=== PATIENT | female | born 1960 | race Caucasian/White ===

== ENCOUNTER → 2017-07-07 09:23 | Outpatient (CLI) | payer BC, SELFPAY ==
--- NOTE | 2017-07-07 09:26 | MM_ITS ---
MM Dig mamm BI DX w/CAD CAD Screening COMPARISON: Digital mammograms 06/14/2015 and 07/03/2016 INDICATION: There is a history of breast cancer in patient's sister diagnosed before menopause. There is been previous biopsy left breast for benign disease. TECHNIQUE: Standard CC and MLO images were obtained. R2 CAD reviewed. FINDINGS: Moderate diffuse heterogenic fibroglandular densities are seen in both breasts and the findings are bilateral and symmetrical. There is a biopsy clip just deep to the nipple left breast. There are few benign-appearing calcifications in each breast. There is no suspicious lesion and there are no suspicious microcalcifications. IMPRESSION: Stable exam no suspicious lesion seen recommend yearly follow-up BI-RADS Category: 2 Benign Finding(s) RECOMMENDED FOLLOW-UP: 1YR - 1 YEAR FOLLOW-UP (A letter has been sent to the patient regarding results of the study.)
== END ==
PROVIDERS: Family Provider Internal Medicine; PCP Obstetrics & Gynecology; Visit Provider Obstetrics & Gynecology
DX: Z12.31 Encounter for screening mammogram for malignant neoplasm of breast (principal)
CPT/HCPCS: 77066

== ENCOUNTER → 2017-10-16 08:13 | Outpatient (POV) | payer BC, SELFPAY | PROVIDERS: Visit Provider Dentist | DX: Z00.00 Encounter for general adult medical examination without abnormal findings (principal) ==

== ENCOUNTER → 2018-02-19 08:05 | Outpatient (POV) | payer BC, SELFPAY | PROVIDERS: Family Provider Internal Medicine; Visit Provider Dentist | DX: Z00.00 Encounter for general adult medical examination without abnormal findings (principal) ==

== ENCOUNTER → 2018-03-05 08:24 | Outpatient (POV) | payer BC, SELFPAY | PROVIDERS: Visit Provider Dentist | DX: Z00.00 Encounter for general adult medical examination without abnormal findings (principal) ==

== ENCOUNTER → 2018-05-21 08:40 | Outpatient (POV) | payer BC, SELFPAY | PROVIDERS: Visit Provider Dentist | DX: Z00.00 Encounter for general adult medical examination without abnormal findings (principal) ==

== ENCOUNTER → 2018-07-10 08:14 | Outpatient (CLI) | payer BC, SELFPAY ==
--- NOTE | 2018-07-10 08:17 | MM_ITS ---
MM Dig screening mamm BI w/CAD ORDERING PHYSICIAN : Ney Silver MD PATIENT AGE: 58 years GENDER: Female COMPARISON: June 2015, & 2016 & 2017. The bilateral mammogram studies INDICATION: ITS.Routine screening mammogram. This Patient takes Premarin.. Previous benign stereotactic and excisional biopsies left breast. Family history. Sister with breast cancer age 30 premenopausal. TECHNIQUE: Standard CC and MLO images were obtained. R2 CAD reviewed. FINDINGS: Moderately dense moderate heterogeneous breast ... No suspicious calcifications. There is slight nodular character the breast bilaterally again noted.. LEFT BREAST:. Note Small focal dense area noted at the lateral aspect of the central left breast -which is most likely due to summation shadows. This small dense area measuring less than 5 mm seen towards central breast on cc view only. But most likely reside superiorly on MLO view.-But Suspect this is likely summation shadows. See no discrete corresponding density on today's MLO view.. Suggest ultrasound & spot views to further evaluate. Otherwise. Mild asymmetry overall stable to previous mammograms... Small metallic marker at 12:00 anterior left breast from previous percutaneous biopsy again noted RIGHT BREAST:. Right breast slightly nodular character again observed. Vague 9 mm area labeled 'A', is more evident than on recent studies. However suspect was vaguely seen on 2016. Most likely summation shadow or benign fluctuating density..... Doubt of significance but would suggest spot cc, and MLO views right breast as well as ultrasound when patient returns. This could also evaluate the slightly nodular character throughout the breast with areas of fluctuating density which could reflect some underlying cysts.. ... IMPRESSION: ...... Left Breast.... Small 5 mm focus of increased density on cc view, seen at the Central left breast, labeled X.. Most likely a summation shadow. But would benefit from spot views & ultrasound to further evaluate. Right Breast:... Subtle area nodularity labeled A at central right breast on cc view.- Most likely summation shadow as well. Suggest additional imaging here as well However would suggest spot views bilaterally as well as bilateral breast ultrasound to further evaluate BI-RADS Category: 0 Need Additional Imaging Evaluation RECOMMENDED FOLLOW-UP: IMM - IMMEDIATE FOLLOW-UP RECOMMENDED (A letter has been sent to the patient regarding results of the study.)
== END ==
PROVIDERS: PCP Internal Medicine; Visit Provider Obstetrics & Gynecology
DX: Z12.31 Encounter for screening mammogram for malignant neoplasm of breast (principal)
CPT/HCPCS: 77067

== ENCOUNTER → 2018-07-15 09:51 | Outpatient (CLI) | payer BC, SELFPAY ==
--- NOTE | 2018-07-15 09:52 | XR_ITS ---
XR DEXA axial skeleton HISTORY: ITS.REASON: screening ORDERING PHYSICIAN: Ney Silver MD PATIENT AGE: 58 years COMPARISON: 07/03/2016 FINDINGS: The BMD measured at the Left femoral neck is 1.02 g/cm squared with a T score of -0.1. This is considered Normal according to the World Health Organization criteria. Fracture risk is Low. The L1 L4 density has a T score of 1.1. Compared to the previous study the mean lumbar spine density has increased by 1.9% and the mean hip density has increased by 1.9% IMPRESSION: Normal bone density. Low fracture risk. Suggest follow-up exam July 2020
== END ==
PROVIDERS: PCP Internal Medicine; Visit Provider Obstetrics & Gynecology
DX: Z78.0 Asymptomatic menopausal state (principal)
CPT/HCPCS: 77080

== ENCOUNTER → 2018-07-27 14:19 | Outpatient (CLI) | payer BC, SELFPAY ==
--- NOTE | 2018-07-27 14:21 | MM_ITS ---
MM Dig mamm BI DX w/CAD, US breast LT complete, US breast RT complete Ordering Physician: Ney Silver MD Patient Age: 58 years: Female HISTORY: ITS.REASON: ABNORMAL MAMM a follow-up nodularity bilaterally. This patient takes Premarin . Previous stereotactic biopsy and benign excisional biopsy left breast . Sister with breast cancer in her 30s. TECHNIQUE: Diagnostic mammogram: Spot CC view left and right breast Bilateral breast ultrasound: complete ultrasound survey of entire right and left breast including axillary survey. COMPARISON : Multiple prior mammogram digital mammogram from Jul 10, 2018,... & Jun 2017 , 2016, 2015May 20092007 film screen studies DIAGNOSTIC MAMMOGRAM SPOT VIEWS Moderate density breast. Diffuse moderate fibroglandular elements throughout both breast. Slightly heterogeneous character. RIGHT MAMMOGRAM : minimal areas of density at the right breast dissipate on today's spot views and are compatible with multiple old studies.. No new areas of concern. Ultrasound reveals scattered cysts right breast LEFT MAMMOGRAM:. . The small focal area of density noted on recent mammogram persist on the cc view it is again observed on today's CC spot view.. I suspect it is a small cyst which is become apparent on ultrasound at 6 o'clock or 2:00 position each of these measuring up to roughly 4 MM size. On MLO view area Nodularity towards superior breast appears similar to multiple old studies. .-as seen on prior studies from 2007 2008 . Clip from previous stereotactic biopsy seen at the anterior central breast towards 12:00 ========= ULTRASOUND LEFT BREAST: These images do reveal small roughly 4 mm cyst at 2 o'clock position central breast.. And small nearly 4 mm cyst at the 6 o'clock position. Which may correspond with this nodular density on mammography.. . There are also some mild ductal prominence the retroareolar region. Axillary survey demonstrates what appear to be benign nodes largest measuring just over 2 cm length ULTRASOUND RIGHT BREAST: Small unimpressive areas most likely debris-filled cyst. Can be followed: 2:00 central breast behind nipple. Small debris filled cyst of 3.6 mm 3:00 behind nipple small 2.5 mm cyst 10:00 central breast behind nipple 4.25 mm probable debris-filled cyst versus intramammary lymph node. 10:00. Behind nipple 4.4 mm likely debris-filled cyst. Mild ductal prominence retroareolar region. Right axilla: scattered axillary nodes. Largest 2.1 cm. IMPRESSION 1. Bilateral breast Ultrasound-reveals scattered small debris-filled in breast bilaterally 2. Left mammogram. The Small focal focal area of density noted on recent screening mammogram again seen today. This Persist But not as focally dense and fairly smooth margin appearance.-. Suspect this is likely a small cyst as seen on subsequent ultrasound.. However Would suggest a follow-up left mammogram 6 months to confirm stability, for this as well as other subtle features. 3. Right mammogram. Nodularity less evident on today's spot views. & attributable to the scattered cyst seen on today's right breast ultrasound. Follow up one year on right BI-RADS Category: 3 Probably Benign Finding Short Term Follow-up RECOMMENDED FOLLOW-UP: 6M 6 MONTH FOLLOW-UP A 6 month left mammogram & ultrasound left breast. (A letter has been sent to the patient regarding results of the study.)
--- NOTE | 2018-07-27 14:26 | US_ITS ---
US abdomen limited HISTORY:Palpable nodule in the right abdominal region ORDERING PHYSICIAN: Ney Silver MD PATIENT AGE: 58 years Comparison: None FINDINGS: There is a 17 x 15 x 9 mm area of fairly homogeneous isoechogenicity in the right upper quadrant corresponding to the palpable abnormality and may represent a lipoma. This could be confirmed with CT clinically warranted. This does not represent a simple cyst. IMPRESSION: Possible subcutaneous lipoma right upper quadrant
== END ==
PROVIDERS: PCP Internal Medicine; Visit Provider Obstetrics & Gynecology
DX: R92.8 Other abnormal and inconclusive findings on diagnostic imaging of breast (principal); R10.11 Right upper quadrant pain
CPT/HCPCS: 76641; 76705; 77066

== ENCOUNTER → 2018-11-27 11:37 | Outpatient (CLI) | payer BC, SELFPAY ==
[2018-11-27 14:19] LABS: Glucose,Random 72 mg/dL (70-110)
== END ==
PROVIDERS: Visit Provider Obstetrics & Gynecology
DX: N76.0 Acute vaginitis (principal)
CPT/HCPCS: 82947

== ENCOUNTER → 2018-12-29 09:10 | Outpatient (CLI) | payer BC, SELFPAY ==
--- NOTE | 2018-12-29 09:23 | MM_ITS ---
MM Dig mamm DX unilat LT CAD, US breast LT complete Ordering Physician: Ney Silver MD Patient Age: 58 years Female COMPARISON: Bilateral screening mammogram from June 20172016. 2018 INDICATION: New palpable area 6:00 left breast Follow-up asymmetric density left breast noted on 2018 screening mammogram ======== DIAGNOSTIC LEFT MAMMOGRAM with Spot views: CC & MLO spot views upper outer quadrant left breast performed to address palpable area at 6 o'clock position as well as areas noted on July2018 screening mammogram. There is a palpable area towards 6:00-marked by triangular skin marker. Just deep to this area note minimal slightly ovoid density noted at inferior breast with slightly ill-defined margins-majority this density is been seen on prior films MLO view. However this ovoid component in density slightly more evident today and it appears, slightly more focal today.-On today's spot MLO view, note small ovoid area measuring up to 6 mm.. This corresponds with the hypoechoic area seen on subsequent ultrasound. Other previously noted areas of nodularity, previously noted the July screening mammogram, are less evident today... There is a metallic clip at the superior right breast 12:00 reflecting previous percutaneous biopsy-unchanged. ====== ULTRASOUND LEFT BREAST including axilla survey Ultrasound survey the entire breast performed and specifically includes axillary survey. 6:00: The palpable area at 6:00 corresponds with a small up to 5.9 mm hypoechoic area. Mild back wall enhancement and likely debris-filled cyst but there is some appearance of wall thickening of on one or 2 the submitted images.. On although more likely debris-filled cyst,; since area has become palpable and demonstrates some indeterminate features, ultrasound-guided aspiration would be warranted. However since strongly favors a benign cystic area most likely an follow-up 6 months with ultrasound would be a very reasonable alternative.. This patient has history of small cysts . 2:00. Small 4.6 mm cyst.-. No significant change since previous study A few small scattered benign axillary lymph nodes image. Unremarkable. IMPRESSION: ......... 1. The palpable area at 6:00,-corresponds with minimal density on mammography & hypoechoic area ultrasound. Suspect most likely debris-filled cyst with mild wall thickening, & with mild indeterminate features; it measuring up to 6 mm size. . Because it has become palpable in the interval, & demonstrates slight indeterminate features, & not seen on previous usd study,-would suggest ultrasound-guided aspiration. (However if desire a reasonable alternative would be a 6 month follow-up, with ultrasound follow-up at that time.. As favor this is a benign likely fibrocystic feature. . The patient has had small debris filled cyst in past. Also This area may be difficult to visualize & isolated for aspiration given its small size & location just deep to the dermis.) BI-RADS Category: 4 , minimal Suspicious Abnormality-Biopsy Considered . (Most likely debris-filled cyst) RECOMMENDED FOLLOW-UP: BIO - BIOPSY RECOMMENDED *Ultrasound-Guided Cyst Aspiration sampling of this palpable, thick wall probable cyst recommended A letter has been sent to the patient regarding results of the study.)
== END ==
PROVIDERS: PCP Internal Medicine; Visit Provider Obstetrics & Gynecology
DX: N63.20 Unspecified lump in the left breast, unspecified quadrant (principal)
CPT/HCPCS: 76641; 77065

== ENCOUNTER → 2019-01-12 12:38 | Outpatient (CLI) | payer BC, SELFPAY ==
--- NOTE | 2019-01-12 12:38 | US_ITS ---
US FNA Breast HISTORY: Palpable amounted left breast with abnormal breast ultrasound. ORDERING PHYSICIAN: Ney Silver MD PATIENT AGE: 58 years COMPARISON: None TECHNIQUE: Following obtaining informed consent, using aseptic technique and local anesthesia with buffered lidocaine, fine-needle aspiration was performed of the nodule of interest using sonographic guidance. 3 passes were made into the nodule with a 21 gauge needle. Specimen was given to cytology. The central aspect of the nodule did appear to decrease in size. There is some heterogeneous echogenicity around this central area which could also be part of the nodule. The patient tolerated the procedure well without evidence of immediate complications and left the ultrasound suite in stable condition. CYTOLOGY:Atypical IMPRESSION: Uneventful ultrasound guided fine needle aspiration of the left breast nodule at 6:00. The central portion of the nodule did appear to partially aspirate. However, the cytology was atypical. Further investigation is therefore recommended. If the nodule is truly palpable excisional biopsy with palpation could be performed. We could also attempted to perform an ultrasound-guided mammotome biopsy. The nodule is fairly superficial however. Alternatively, a hook wire could be placed within the central aspect of the lesion for excisional biopsy. Consider surgical consult. If hook wire placement is desired then, it would be recommended that the patient come in before the procedure to make sure we can still see the nodule by ultrasound.
== END ==
PROVIDERS: PCP Internal Medicine; Visit Provider Obstetrics & Gynecology
DX: N63.20 Unspecified lump in the left breast, unspecified quadrant (principal)
CPT/HCPCS: 10005; 76942

== ENCOUNTER → 2019-04-12 12:50 | Outpatient (CLI) | payer BC, SELFPAY ==
--- NOTE | 2019-04-12 12:52 | MM_ITS ---
PROCEDURE: MM DIG MAMM DX UNILAT LT CAD CLINICAL INDICATION: 3 month f/u Follow-up atypical pathology for recent breast biopsy COMPARISON: DIG MAMM-DX UNI-LT from 12/29/2018 FNABRE US FNA Breast from 01/12/2019 US BREAST LT COMPLETE from 04/13/2019 TECHNIQUE: Standard CC and MLO images were obtained. R2 CAD reviewed. FINDINGS: Recent fine needle aspiration of the left breast shows atypical cytology. Therefore, excisional biopsy was suggested. Patient returns today to see if the area persists before biopsy planned. Left mammogram: Average fibroglandular tissue. Biopsy clip is present in the upper aspect of the left breast. No malignant appearing mass or malignant-appearing microcalcification is evident. Left breast ultrasound: There remains an area of heterogeneous echogenicity at the 6 o'clock region of the left breast at the area of previous biopsy with heterogeneous echogenicity measuring 1.8 by 0.8 cm with a central area of decreased echogenicity measuring 5 mm. This is not significantly changed from the previous FNA. Therefore, excisional biopsy is suggested as this was the area of atypical cytology. IMPRESSION: BI-RAD Category: 4 Suspicious Abnormality - Biopsy Considered FOLLOW-UP: Recommend excisional biopsy with hookwire placement with ultrasound. (A letter has been sent to the patient regarding results of the study.) Dictated by: Salty Zepeda MD 04/19/2019 09:38 Electronically signed by Salty Zepeda MD in [place] 04/19/2019 09:38
== END ==
PROVIDERS: PCP Internal Medicine; Visit Provider Obstetrics & Gynecology
DX: R92.8 Other abnormal and inconclusive findings on diagnostic imaging of breast (principal)
CPT/HCPCS: 77065

== ENCOUNTER → 2019-04-13 10:57 | Outpatient (CLI) | payer BC, SELFPAY | PROVIDERS: PCP Internal Medicine; Visit Provider Obstetrics & Gynecology | DX: R92.8 Other abnormal and inconclusive findings on diagnostic imaging of breast (principal) | CPT/HCPCS: 76641 ==

== ENCOUNTER → 2019-04-27 10:13 | Outpatient (CLI) | payer BC, SELFPAY ==
--- NOTE | 2019-04-27 10:31 | ECG_ITS ---
APPROVED REPORT Exam: Resting ECG HR:55 bpm ECG Measurements Heart Rate 55 AXES MA 140 P 26 QRSd 90 QRS 2 QT 406 T 11 QTc 388 <Conclusion> Sinus bradycardia Otherwise normal ECG Electronically signed by : Baltazar Posey, 04/27/2019 21:29:07
[2019-04-27 11:06] LABS: Basophils % 0.5 % (0.1-2.0); Eosinophils # 0.2 K/mm3 (0.0-0.4); Eosinophils % 3.5 % (0.1-12.0); Hematocrit 42.1 % (37.0-47.0); Hemoglobin 14.1 g/dL (12.2-16.2); Lymphocytes # 1.5 K/mm3 (0.7-4.5); Mean Corpuscular HGB Conc 33.6 g/dL (31.8-35.4); Mean Corpuscular Hemoglobin 30.7 pg (27.0-31.2); Mean Corpuscular Volume 91.6 fl (81-99); Mean Platelet Volume 9.2 fl (7.4-10.4); Monocytes # 0.4 K/mm3 (0.1-1.0); Monocytes % 6.9 % (1.7-9.3); Neutrophils # 3.9 K/mm3 (1.8-7.8); Platelet Count 336 K/mm3 (142-424); Red Cell Distribution Width 13.6 % (11.5-17.5); White Blood Count 6.1 K/mm3 (4.8-10.8)
[2019-04-27 12:13] LABS: Anion Gap 8.8 mEq/L (5-15); Blood Urea Nitrogen 12 mg/dL (7-18); Carbon Dioxide 30 mmol/L (21.0-32.0); Chloride 105 mmol/L (98-107); Estimated Glomerular Filt Rate 126 ml/min (>60); GFR (African American) 153 ML/MIN (>60); Glucose 92 mg/dL (74-106); Potassium 3.8 mmoL/L (3.5-5.1); Sodium 140 mmol/L (136-145)
== END ==
PROVIDERS: Visit Provider Surgery
DX: Z01.818 Encounter for other preprocedural examination (principal); N63.20 Unspecified lump in the left breast, unspecified quadrant
CPT/HCPCS: 36415; 80048; 85025; 93005

== ENCOUNTER → 2019-07-29 13:24 | Outpatient (CLI) | payer BC, SELFPAY ==
--- NOTE | 2019-07-29 13:25 | MM_ITS ---
PROCEDURE: MM DIG MAMM BI DX W/CAD CLINICAL INDICATION: abnormal mamm COMPARISON: [facility] DIGITAL MAMM-SCREEN BILATERAL from 05/22/2011 [facility] DIGITAL MAMM-SCREEN BILATERAL from 05/22/2012 [facility] DIG MAMM-SCREEN NELLA from 05/20/2013 [facility] DIG MAMM-SCREEN NELLA from 06/01/2014 [facility] DIG MAMM-SCREEN NELLA from 06/14/2015 [facility] DIG MAMM-SCREEN NELLA W/CAD from 07/03/2016 [facility] MM Dig mamm BI DX w/CAD from 07/07/2017 [facility] MM Dig screening mamm BI w/CAD from 07/10/2018 [facility] MM Dig mamm BI DX w/CAD from 07/27/2018 MM DIG MAMM DX UNILAT LT CAD from 04/12/2019 MM SURGICAL SPECIMEN LT from 05/14/2019 MM DIG MAMM DX UNILAT LT CAD from 05/14/2019 TECHNIQUE: Standard CC and MLO images and 3D Tomosynthesis was obtained. R2 CAD reviewed. FINDINGS: The breasts are of average density. Multiple postsurgical clips from biopsy with wire is seen in the inferior lateral aspect of the left breast. There is some asymmetrical density most consistent with scarring in the surgical bed. There are no new findings suspicious for malignancy. Benign appearing calcifications are seen bilaterally. IMPRESSION: BI-RAD Category: 3 probably benign) FOLLOW-UP: 6M 6Month Follow-up (A letter has been sent to the patient regarding results of the study.) Dictated by: Lopez Ryder 07/29/2019 16:28 Electronically signed by Lopez Ryder in [place] 07/29/2019 16:28
--- NOTE | 2019-07-29 13:25 | US_ITS ---
PROCEDURE: US BREAST LT COMPLETE CLINICAL INDICATION: lt breast nodule COMPARISON: US BREAST NEEDLE LOC LT from 05/14/2019 FINDINGS: Images were obtained over the left breast with emphasis on the area of prior surgery. A small fluid collection approximately 3 x 24 millimeters irregular and poorly circumscribed is seen in the biopsy bed. Differential considerations would include postsurgical seroma or lymphocele. Abscess would also have to be considered in the appropriate clinical setting. There is no discrete solid mass or other sonographic abnormality. No correlate for the nodular density in the lateral left breast seen mammographically is noted. Fatty containing lymph nodes are seen in the left axilla. IMPRESSION: BI-RADS category 2 benign. Small amount of fluid is seen in the breast at the 6 o'clock position near the nipple in the postsurgical region. Seroma, lymphocele, or in the appropriate clinical setting, abscess would have to be considered. Dictated by: Lopez Ryder 07/31/2019 10:33 Electronically signed by Lopez Ryder in [place] 07/31/2019 10:33
== END ==
PROVIDERS: PCP Internal Medicine; Visit Provider Surgery
DX: N63.20 Unspecified lump in the left breast, unspecified quadrant (principal)
CPT/HCPCS: 76641; 77062; 77066; G0279

== ENCOUNTER → 2020-01-31 13:17 | Outpatient (CLI) | payer BC, SELFPAY ==
--- NOTE | 2020-01-31 | US_ITS ---
PROCEDURE: US BREAST LT COMPLETE CLINICAL INDICATION: Follow-up fluid collection seen at the lumpectomy site on previous ultrasound exam COMPARISON: US US BREAST LT COMPLETE from 07/29/2019 FINDINGS: The somewhat irregular elongated fluid collections seen 6 to 7 o'clock position on the previous ultrasound exam has resolved was a postoperative hematoma or seroma. There is no suspicious mass or fluid collection at this time. Only minimal postoperative scarring is noted at the 6 and 7 o'clock positions. IMPRESSION: Interval improvement with resolution of the suspected fluid collection seen on the previous ultrasound exam and only minor post lumpectomy scarring is noted. No additional ultrasound follow-up is indicated at this time. Dictated by: Dr. Xavi Corral MD 02/08/2020 10:51 Dr. Xavi Corral MD in [place] 02/08/2020 10:51
--- NOTE | 2020-01-31 13:18 | MM_ITS ---
PROCEDURE: MM DIG MAMM DX UNILAT LT CAD Digital Breast Tomosynthesis Included CLINICAL INDICATION: 6 mo fu COMPARISON: MG MM SURGICAL SPECIMEN LT from 05/14/2019 MG MM DIG MAMM DX UNILAT LT CAD from 05/14/2019 MG MM DIG MAMM BI DX W/CAD from 07/29/2019 TECHNIQUE: Standard CC and MLO images and 3D Tomosynthesis was obtained. R2 CAD reviewed. FINDINGS: The opacity at the site of the surgical clips seen on the previous study 07/29/2019 has resolved in this likely was post surgical edema and or scarring which has shown interval contraction. Moderate diffuse fibroglandular densities are seen in the central portion of the breast. The multiple biopsy clips are again noted inferior medial breast and in addition to a 2nd biopsy clip just deep to the nipple. There are no suspicious microcalcifications. IMPRESSION: Interval resolution of what was likely post biopsy edema and or scarring, recommend patient return to normal yearly screening BI-RAD Category: 2 Benign Finding(s) FOLLOW-UP: 6M 6Month Follow-up to return to normal yearly screening schedule (A letter has been sent to the patient regarding results of the study.) Dictated by: Dr. Xavi Corral MD 02/02/2020 14:16 Dr. Xavi Corral MD in [place] 02/02/2020 14:16
== END ==
PROVIDERS: PCP Internal Medicine; Visit Provider Surgery
DX: N63.20 Unspecified lump in the left breast, unspecified quadrant (principal)
CPT/HCPCS: 76641; 77061; 77065; G0279

== ENCOUNTER → 2020-07-31 10:52 | Outpatient (CLI) | payer BC, SELFPAY ==
--- NOTE | 2020-07-31 10:52 | MM_ITS ---
PROCEDURE: MM DIG SCREENING MAMM BI W/CAD Digital Breast Tomosynthesis Included CLINICAL INDICATION: breast nodules There is a history of breast cancer in the patient's sister diagnosed in her 30s. There has been a previous biopsy left breast for benign disease.. The patient recently started Premarin cream. COMPARISON: MG MM SURGICAL SPECIMEN LT from 05/14/2019 MG MM DIG MAMM BI DX W/CAD from 07/29/2019 MG MM DIG MAMM DX UNILAT LT CAD from 01/31/2020 TECHNIQUE: Standard CC and MLO images and 3D Tomosynthesis was obtained. R2 CAD reviewed. FINDINGS: Moderate diffuse fibroglandular densities are seen throughout both breasts. Multiple surgical clips are seen lower inner quadrant left breast at the previous biopsy site. There is a mole marker outer quadrant left breast. There couple of benign-appearing microcalcifications in each breast. There is no suspicious lesion in either breast and no suspicious microcalcifications. IMPRESSION: Stable moderate diffuse breast density with no suspicious lesions seen BI-RAD Category: 2 Benign Finding(s) FOLLOW-UP: 1YR 1 Year Follow-up (A letter has been sent to the patient regarding results of the study.) Dictated by: Dr. Xavi Corral MD 08/01/2020 16:46 Dr. Xavi Corral MD in [place] 08/01/2020 16:46
== END ==
PROVIDERS: PCP Internal Medicine; Visit Provider Surgery
DX: Z12.31 Encounter for screening mammogram for malignant neoplasm of breast (principal); N63.20 Unspecified lump in the left breast, unspecified quadrant; Z80.3 Family history of malignant neoplasm of breast
CPT/HCPCS: 77063; 77067

== ENCOUNTER → 2020-08-08 15:12 | Outpatient (POV) | payer BC, SELFPAY | PROVIDERS: Visit Provider Dermatology | DX: Z00.00 Encounter for general adult medical examination without abnormal findings (principal) ==

== ENCOUNTER → 2020-11-01 09:39 | Outpatient (CLI) | payer BC, SELFPAY ==
--- NOTE | 2020-11-01 09:46 | XR_ITS ---
PROCEDURE: XR KNEE LT 3V CLINICAL INDICATION: LT KNEE PAIN AND SWELLING COMPARISON: No exams were available for comparison FINDINGS: No fracture or dislocation. No lytic or blastic change. There is normal mineralization. There are mild osteoarthritic changes of the medial compartment and patellofemoral joint. There is increased soft tissue density in the suprapatellar region suggesting small knee joint effusion. Other findings:None. 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
== END ==
PROVIDERS: PCP Internal Medicine; Visit Provider Internal Medicine
DX: M25.562 Pain in left knee (principal); M25.462 Effusion, left knee
CPT/HCPCS: 73562

== ENCOUNTER → 2021-01-24 18:32 | Outpatient (CLI) | payer BC, SELFPAY ==
[2021-01-24 19:15] LABS: Basophils # 0.1 K/mm3 (0-0.2); Basophils % 0.8 % (0.1-2.0); Eosinophils # 0.4 K/mm3 (0.0-0.4); Eosinophils % 3.8 % (0.1-12.0); Hematocrit 40.3 % (37.0-47.0); Hemoglobin 13.9 g/dL (12.2-16.2); Lymphocytes % 20.4 % (10-50); Mean Corpuscular HGB Conc 34.5 g/dL (31.8-35.4); Mean Corpuscular Hemoglobin 29.8 pg (27.0-31.2); Mean Corpuscular Volume 86.4 fl (81-99); Mean Platelet Volume 9.2 fl (7.4-10.4); Monocytes # 0.7 K/mm3 (0.1-1.0); Monocytes % 7.6 % (1.7-9.3); Neutrophils # 6.5 K/mm3 (1.8-7.8); Neutrophils % 67.4 % (37.0-80.0); Platelet Count 353 K/mm3 (142-424); Red Blood Count 4.66 M/mm3 (4.20-5.40); Red Cell Distribution Width 13.9 % (11.5-17.5); White Blood Count 9.6 K/mm3 (4.8-10.8)
[2021-01-24 19:41] LABS: Chloride 105 mmol/L (98-107); Sodium 142 mmol/L (136-145)
[2021-01-24 19:42] LABS: Potassium 3.8 mmoL/L (3.5-5.1)
[2021-01-24 19:44] LABS: Alanine Aminotransferase 23 U/L (12-78); Albumin Level 4.1 g/dl (3.5-5.0); Albumin/Globulin Ratio 1.6 (1.1-1.8); Alkaline Phosphatase 112 U/L (38-126); Amylase 45 U/L (30-110); Anion Gap 12.8 mEq/L (5-15); Aspartate Amino Transferase 33 U/L (14-36); Bilirubin,Total 0.3 mg/dl (0.2-1.3); Blood Urea Nitrogen 9 mg/dl (7-17); Calcium 8.9 mg/dl (8.4-10.2); Carbon Dioxide 28 mmol/L (22.0-30.0); Estimated Glomerular Filt Rate 102 ml/min (>60); GFR (African American) 123 ML/MIN (>60); Globulin 2.6 g/dL (1.3-3.2); Glucose 83 mg/dl (74-100); Total Protein,Serum 6.7 g/dl (6.3-8.2)
== END ==
PROVIDERS: Visit Provider Internal Medicine
DX: R10.12 Left upper quadrant pain (principal); R10.11 Right upper quadrant pain; R11.0 Nausea
CPT/HCPCS: 80053; 82150; 85025

== ENCOUNTER → 2021-02-02 10:29 | Outpatient (CLI) | payer BC, SELFPAY ==
[2021-02-02 10:31] LABS: Adenovirus F 40/41, stool Not Detected (NotDetected); Astrovirus Not Detected (NotDetected); Campylobacter Not Detected (NotDetected); Clostridium Difficile A/B, PCR Not Detected (NotDetected); Cryptosporidium Not Detected (NotDetected); Cyclospora Cayetanesis Not Detected (NotDetected); Entamoeba histolytica Not Detected (NotDetected); Enteroaggregative E coli Not Detected (NotDetected); Enteropathogenic E coli Not Detected (NotDetected); Enterotoxigenic E coli Not Detected (NotDetected); Giardia lamblia Not Detected (NotDetected); Norovirus Not Detected (NotDetected); Plesimonas Shigalloides, PCR Not Detected (NotDetected); Rotavirus A Not Detected (NotDetected); Salmonella, PCR Not Detected (NotDetected); Sapovirus Not Detected (NotDetected); Shiga-like toxin E coli Not Detected (NotDetected); Shigella Enterovasive E coli Not Detected (NotDetected); Vibrio Cholerae Not Detected (NotDetected); Vibrio, PCR Not Detected (NotDetected); Yersinia Entercolitica, PCR Not Detected (NotDetected)
== END ==
PROVIDERS: Visit Provider Nurse Practitioner Family
DX: R10.12 Left upper quadrant pain (principal); R19.7 Diarrhea, unspecified
CPT/HCPCS: 87507

== ENCOUNTER → 2021-07-05 08:44 | Outpatient (CLI) | payer SELFPAY ==
[2021-07-06 13:37] LABS: Covid-19 Nasal PCR Sendout Lex NOT DETECTED
== END ==
PROVIDERS: Visit Provider Nurse Practitioner
DX: Z20.822 Contact with and (suspected) exposure to COVID-19 (principal)
CPT/HCPCS: C9803; U0004; U0005

== ENCOUNTER → 2021-08-02 09:53 | Outpatient (CLI) | payer SELFPAY ==
--- NOTE | 2021-08-02 09:57 | MM_ITS ---
PROCEDURE INFORMATION: Exam: MG Bilateral Screening 3D Mammography Exam date and time: 08/02/2021 9:57 AM Age: 61 years old Clinical indication: Screening mammogram TECHNIQUE: Imaging protocol: Bilateral Screening tomosynthesis and 2D mammography including computer-aided detection (CAD) when performed. COMPARISON: 1. MG MM DIG SCREENING MAMM BI W/CAD 07/31/2020 10:54 AM 2. MG MM DIG MAMM DX UNILAT LT CAD 01/31/2020 1:42 PM 3. MG MM DIG MAMM BI DX W/CAD 07/29/2019 1:44 PM 4. MG MM SURGICAL SPECIMEN LT 05/14/2019 11:17 AM FINDINGS: MAMMOGRAPHY: Breast composition: The breast tissue is heterogeneously dense, which may obscure small masses. Mass: None. Architectural distortion: No new or suspicious architectural distortion. Calcifications: No new or suspicious calcifications are present Asymmetric density: No new or suspicious asymmetric density is present Skin thickening: None. Axillary adenopathy: None. Other findings: Stable postoperative findings within the left breast. IMPRESSION: No mammographic evidence of malignancy. Recommend annual screening mammography unless otherwise clinically indicated. ASSESSMENT: BI-RADS category 2: Benign
== END ==
PROVIDERS: PCP Internal Medicine; Visit Provider Internal Medicine
DX: Z12.31 Encounter for screening mammogram for malignant neoplasm of breast (principal)
CPT/HCPCS: 77063; 77067

== ENCOUNTER → 2022-04-10 12:34 | Outpatient (CLI) | payer OTHER, SELFPAY ==
[2022-04-10 14:06] LABS: Blood Urea Nitrogen 10 mg/dl (7-17); Estimated Glomerular Filt Rate 125 ml/min (>60); GFR (African American) 151 ML/MIN (>60)
== END ==
PROVIDERS: PCP Internal Medicine; Visit Provider Student in an Organized Health Care Education/Training Program
DX: Z01.812 Encounter for preprocedural laboratory examination (principal)
CPT/HCPCS: 36415; 82565; 84520

== ENCOUNTER → 2022-04-11 08:00 | Outpatient (CLI) | payer OTHER, SELFPAY ==
--- NOTE | 2022-04-11 08:00 | MR_ITS ---
FINAL REPORT CLINICAL HISTORY: unsteady gait. IMBALANCE. SYMPTOMS X YEARS. 19ML PROHANCE GIVEN. FINDINGS: Multiplanar MR imaging of the brain was performed without and with contrast. There is mild age-appropriate atrophy. Scattered foci of increased T2 signal are seen in the cerebral white matter that favor mild chronic ischemic/gliotic changes over other etiologies such as demyelination and vasculitis. There is no evidence of intracranial hemorrhage or mass. No abnormal ventricular dilatation is identified. There is no evidence of shift of the midline structures. No abnormal extra-axial fluid collection is seen. No area of abnormal restricted diffusion is identified. The posterior fossa and brainstem have an unremarkable appearance. No abnormal contrast enhancement is seen. Normal major vessel vascular flow voids are seen. IMPRESSION: Atrophy. Scattered small foci of increased T2 signal in the cerebral white matter favoring mild chronic ischemic/gliotic meter changes records clerk other etiologies such as demyelination and vasculitis. No acute intracranial abnormality. Reviewed, Interpreted and Dictated by Gurjit Moya III, MD Transcribed by Caio Feliciano Authenticated and . [facility]
== END ==
PROVIDERS: PCP Student in an Organized Health Care Education/Training Program; Visit Provider Student in an Organized Health Care Education/Training Program
DX: R26.81 Unsteadiness on feet (principal)
CPT/HCPCS: 70553; A9576

== ENCOUNTER → 2022-06-11 14:38 | Outpatient (CLI) | payer BC, SELFPAY ==
--- NOTE | 2022-06-11 15:15 | XR_ITS ---
FINAL REPORT CLINICAL HISTORY: positive rhomberg, occas neck pain FINDINGS: SPINE CERVICAL COMPLETE/FLEXION & EXT Three views demonstrate no acute fracture. There is moderate diffuse degenerative disc disease and spondylosis. There is no evidence of instability or malalignment with flexion and extension maneuvers. IMPRESSION: Degenerative disc disease. Reviewed, Interpreted and Dictated by Merlin Purvis MD Transcribed by Kate Morrell Authenticated and [facility]
[2022-06-11 17:35] LABS: Basophils # 0.1 K/mm3 (0-0.2); Basophils % 0.9 % (0.1-2.0); Eosinophils # 0.4 K/mm3 (0.0-0.4); Eosinophils % 5.5 % (0.1-12.0); Hematocrit 42.9 % (37.0-47.0); Hemoglobin 13.9 g/dL (12.2-16.2); Lymphocytes # 1.9 K/mm3 (0.7-4.5); Lymphocytes % 24.2 % (10-50); Mean Corpuscular HGB Conc 32.5 g/dL (31.8-35.4); Mean Corpuscular Hemoglobin 28.8 pg (27.0-31.2); Mean Corpuscular Volume 88.8 fl (81-99); Mean Platelet Volume 8.9 fl (7.4-10.4); Monocytes # 0.7 K/mm3 (0.1-1.0); Monocytes % 8.7 % (1.7-9.3); Neutrophils # 4.9 K/mm3 (1.8-7.8); Neutrophils % 60.7 % (37.0-80.0); Platelet Count 406 K/mm3 (142-424); Red Blood Count 4.83 M/mm3 (4.20-5.40); Red Cell Distribution Width 13.6 % (11.5-17.5)
[2022-06-11 19:12] LABS: Alanine Aminotransferase 26 U/L (12-78); Albumin Level 4.1 g/dl (3.5-5.0); Albumin/Globulin Ratio 1.5 (1.1-1.8); Alkaline Phosphatase 95 U/L (38-126); Anion Gap 11.8 mEq/L (5-15); Aspartate Amino Transferase 36 U/L (14-36); Bilirubin,Total 0.5 mg/dl (0.2-1.3); Blood Urea Nitrogen 11 mg/dl (7-17); Calcium 8.9 mg/dl (8.4-10.2); Carbon Dioxide 28 mmol/L (22.0-30.0); Chloride 103 mmol/L (98-107); Estimated Glomerular Filt Rate 101 ml/min (>60); GFR (African American) 123 ML/MIN (>60); Globulin 2.7 g/dL (1.3-3.2); Glucose 77 mg/dl (74-100); Potassium 3.8 mmoL/L (3.5-5.1); Sodium 139 mmol/L (136-145); Total Protein,Serum 6.8 g/dl (6.3-8.2)
[2022-06-11 19:37] LABS: Thyroid Stimulating Hormone 2.26 uIU/mL (0.465-4.68)
[2022-06-11 20:13] LABS: Vitamin B12 735 pg/mL (239-931)
[2022-06-11 20:17] LABS: Folate > 20.00 ng/mL
== END ==
PROVIDERS: PCP Internal Medicine; Visit Provider Nurse Practitioner Family
DX: M54.2 Cervicalgia (principal); R26.89 Other abnormalities of gait and mobility; R29.818 Other symptoms and signs involving the nervous system; G47.00 Insomnia, unspecified; Z86.69 Personal history of other diseases of the nervous system and sense organs
CPT/HCPCS: 36415; 72052; 80053; 82607; 82746; 84443; 85025

== ENCOUNTER → 2022-06-20 08:41 | Outpatient (CLI) | payer OTHER, SELFPAY ==
--- NOTE | 2022-06-20 08:41 | MR_ITS ---
FINAL REPORT CLINICAL HISTORY: NECK PAIN ,ABN XRAY. DIZZINESS. Intermittent hand numbness. FINDINGS: Multiplanar MR imaging of the cervical spine was performed without contrast. On the sagittal T2-weighted images, disc degeneration is seen throughout. There is no evidence of fracture. There is mild retrolisthesis of C3 on 4, C4 on 5, and C5 on 6. The cervical spinal cord has an unremarkable appearance without evidence of mass, edema or syrinx. No significant canal stenosis is identified. The cervicomedullary junction is normal. C2-3: There is no significant canal stenosis or neural foraminal narrowing. C3-4: Disc osteophyte complex is present with severe right and moderate left neural foraminal narrowing. C4-5: Disc osteophyte complex is present with severe right and moderate left neural foraminal narrowing. C5-6: Disc osteophyte complex is present with severe right and moderate left neural foraminal narrowing. C6-7: Disc osteophyte complex is present with moderate bilateral neural foraminal narrowing. C7-T1: There is no significant canal stenosis or neural foraminal narrowing. IMPRESSION: Multilevel degenerative disc disease and spondylosis. Reviewed, Interpreted and Dictated by Gurjit Moya III, MD Transcribed by Kate Morrell Authenticated and [facility]
--- NOTE | 2022-06-20 11:52 | XR_ITS ---
FINAL REPORT CLINICAL HISTORY: Cough FINDINGS: 2 views of the chest were obtained . The heart is normal in size. The mediastinum is within normal limits. The lungs are clear. There is no pneumothorax. Osseous structures are unremarkable. IMPRESSION: No acute cardiopulmonary process. Reviewed, Interpreted and Dictated by Gurjit Moya III, MD Transcribed by Trisha Muñoz Authenticated and [facility]
== END ==
PROVIDERS: PCP Internal Medicine; Visit Provider Nurse Practitioner Family
DX: R05.9 Cough, unspecified (principal); M54.2 Cervicalgia; R26.89 Other abnormalities of gait and mobility; R93.7 Abnormal findings on diagnostic imaging of other parts of musculoskeletal system
CPT/HCPCS: 71046; 72141; 76376

== ENCOUNTER → 2022-06-24 09:07 | Outpatient (CLI) | payer OTHER, SELFPAY | PROVIDERS: PCP Family Medicine; Visit Provider Nurse Practitioner Family | DX: G47.33 Obstructive sleep apnea (adult) (pediatric) (principal); G47.00 Insomnia, unspecified; R06.83 Snoring; R26.89 Other abnormalities of gait and mobility; E66.9 Obesity, unspecified; Z68.39 Body mass index [BMI] 39.0-39.9, adult | CPT/HCPCS: G0399 ==

== ENCOUNTER → 2022-08-06 10:49 | Outpatient (CLI) | payer OTHER, SELFPAY ==
--- NOTE | 2022-08-06 10:49 | MM_ITS ---
PROCEDURE INFORMATION: Exam: MG Bilateral Screening 3D Mammography Exam date and time: 08/06/2022 10:44 AM Age: 62 years old Clinical indication: Screening examination TECHNIQUE: Imaging protocol: Bilateral Screening tomosynthesis and 2D mammography including computer-aided detection (CAD) when performed. COMPARISON: 1. MG MM DIG SCREENING MAMM BI W/CAD 08/02/2021 9:53 AM 2. MG MM DIG SCREENING MAMM BI W/CAD 07/31/2020 10:54 AM FINDINGS: MAMMOGRAPHY: Breast composition: The breasts are heterogeneously dense, which may obscure small masses. Mass: None. Architectural distortion: None. Calcifications: Linear calcifications in the middle third of the left central breast Asymmetric density: None. Skin thickening: None. Axillary adenopathy: None. IMPRESSION: Patient to be recalled for spot magnification views of the left breast in the CC and MLO projections for further evaluation of left breast calcifications. ASSESSMENT: BI-RADS Category 0: Incomplete- Need Additional Imaging Evaluation and/or Prior Mammograms for Comparison
== END ==
PROVIDERS: PCP Family Medicine; Visit Provider Family Medicine
DX: Z12.31 Encounter for screening mammogram for malignant neoplasm of breast (principal)
CPT/HCPCS: 77063; 77067

== ENCOUNTER → 2022-08-16 12:45 | Outpatient (CLI) | payer OTHER, SELFPAY ==
--- NOTE | 2022-08-16 12:45 | MM_ITS ---
PROCEDURE INFORMATION: Exam: MG Left Diagnostic Breast Tomosynthesis Exam date and time: 08/16/2022 12:57 PM Age: 62 years old Clinical indication: Recall on the basis of screening mammogram 08/06/2022 for further evaluation of linear calcifications in the middle 3rd of the left breast. History of left breast surgery. TECHNIQUE: Imaging protocol: Left Diagnostic tomosynthesis and 2D mammography including computer-aided detection (CAD) when performed. Unilateral or bilateral exam. COMPARISON: 1. MG MM DIG SCREENING MAMM BI W/CAD 08/06/2022 10:44 AM 2. MG MM DIG SCREENING MAMM BI W/CAD 08/02/2021 9:53 AM 3. MG MM DIG SCREENING MAMM BI W/CAD 07/31/2020 10:54 AM 4. MG MM DIG MAMM DX UNILAT LT CAD 01/31/2020 1:42 PM FINDINGS: MAMMOGRAPHY: Magnification views show suspicious linear branching calcifications in a segmental distribution, over at least 5 cm, in the left central breast middle 3rd. Also, in the craniocaudad projection fainter punctate groupings of calcifications in the lateral breast, anterior 3rd, lateral to the biopsy clip, not demonstrated in the MLO projection. IMPRESSION: See comment Stereotactic biopsy recommended for segmental branching calcifications in the central left breast. There are additional calcifications in the lateral anterior 3rd of the CC projection, not demonstrated in the MLO projection - suggest adding a full field lateral and magnification views in the upper left breast to delineate extent of calcifications. ASSESSMENT: BI-RADS Category 4: Suspicious
== END ==
PROVIDERS: PCP Family Medicine; Visit Provider Family Medicine
DX: R92.8 Other abnormal and inconclusive findings on diagnostic imaging of breast (principal)
CPT/HCPCS: 77061; 77065; G0279

== ENCOUNTER → 2022-08-27 14:37 | Outpatient (CLI) | payer OTHER, SELFPAY ==
--- NOTE | 2022-08-27 14:37 | MM_ITS ---
PROCEDURE INFORMATION: Exam: MG Left Diagnostic Breast Tomosynthesis Exam date and time: 08/27/2022 2:33 PM Age: 62 years old Clinical indication: Diagnostic mammogram from 08/16/2022 describes suspicious branching calcifications spanning 5 cm in the left central breast middle 1/3. No was made that lateral anterior 1/3 calcifications were present on CC but not visualized on ML magnification views, and therefore full lateral and MLO were requested TECHNIQUE: Imaging protocol: Left Diagnostic tomosynthesis and 2D mammography including computer-aided detection (CAD) when performed. Unilateral or bilateral exam. COMPARISON: 1. MG MM DIG MAMM DX UNILAT LT CAD 08/16/2022 12:57 PM 2. MG MM DIG SCREENING MAMM BI W/CAD 08/06/2022 10:44 AM 3. MG MM DIG SCREENING MAMM BI W/CAD 08/02/2021 9:53 AM 4. MG MM DIG SCREENING MAMM BI W/CAD 07/31/2020 10:54 AM FINDINGS: MAMMOGRAPHY: In addition to the suspicious linear and branching calcifications spanning 5 cm occupying the central left breast, there is a 1.5 cm cluster of very faint pleomorphic calcifications in the upper outer anterior left breast located about 5 cm superior and slightly lateral to the dominant central calcifications. No associated architectural distortion or suspicious mass. Morphologically, these are suspicious IMPRESSION: In addition to the central 5 cm grouping of branching and linear calcifications initially deemed suspicious there is a 1.5 cm cluster of faint pleomorphic calcifications in the upper outer anterior left breast about 5 cm superior and lateral to the dominant cluster. Biopsy of both of these clusters should be considered to exclude the possibility of ASSESSMENT: BI-RADS category 4: Suspicious
== END ==
PROVIDERS: PCP Family Medicine; Visit Provider Family Medicine
DX: R92.1 Mammographic calcification found on diagnostic imaging of breast (principal); R92.8 Other abnormal and inconclusive findings on diagnostic imaging of breast; Z80.3 Family history of malignant neoplasm of breast
CPT/HCPCS: 77061; 77065; G0279

== ENCOUNTER → 2022-09-23 08:55 | Outpatient (CLI) | payer OTHER, SELFPAY ==
--- NOTE | 2022-09-23 08:55 | MM_ITS ---
FINAL REPORT CLINICAL HISTORY: lt breast calcs, 2nd site FINDINGS: STEREOTACTIC GUIDED LEFT BREAST BIOPSY, CLIP PLACEMENT, SPECIMEN RADIOGRAPH AND POST BIOPSY MAMMOGRAM Indication: Suspicious calcifications located in the inferior left breast at 6:00. This was the 2nd of 2 left breast biopsies. Findings: The stereotactic guided breast biopsy procedure was explained in detail to the patient including potential risk and benefits. The patient voiced an understanding of the procedure, was given an opportunity to ask questions, after which informed consent was obtained. The patient was positioned upon the stereotactic unit in the prone position. The breast was prepped in the usual sterile fashion. Subcutaneous soft tissues were anesthetized with lidocaine with epinephrine. Subsequently, with intermittent stereotactic guidance, the stereotactic biopsy needle was advanced into the breast in the region of the mammographic abnormality corresponding to recent diagnostic mammogram. An inferior to superior approach was utilized. Multiple vacuum assisted core samples were obtained. Sampling was thought to be adequate and the biopsy clip marker was deployed in the region of biopsy. Additional imaging as detailed below was performed. Specimen radiograph: Calcifications confirmed adequate Post procedure routine CC and MLO view mammogram: Post biopsy changes. Biopsy marker clip noted to be in the appropriate location. Patient tolerated the procedure well. No immediatecomplications. IMPRESSION: 1. Technically successful stereotactic guided biopsy of left upper outer quadrant calcifications 2. Biopsy marker clip deployed 3. Post biopsy mammogram obtained as above Authenticated and [facility]
--- NOTE | 2022-09-23 09:39 | MM_ITS ---
FINAL REPORT CLINICAL HISTORY: 1st site , suspicious left breast calcifications FINDINGS: STEREOTACTIC GUIDED LEFT BREAST BIOPSY, CLIP PLACEMENT, SPECIMEN RADIOGRAPH AND POST BIOPSY MAMMOGRAM Indication: Suspicious calcifications located in the left upper outer quadrant. This was the 1st of 2 left breast biopsies. Findings: The stereotactic guided breast biopsy procedure was explained in detail to the patient including potential risk and benefits. The patient voiced an understanding of the procedure, was given an opportunity to ask questions, after which informed consent was obtained. The patient was positioned upon the stereotactic unit in the prone position. The breast was prepped in the usual sterile fashion. Subcutaneous soft tissues were anesthetized with lidocaine with epinephrine. Subsequently, with intermittent stereotactic guidance, the stereotactic biopsy needle was advanced into the breast in the region of the mammographic abnormality corresponding to recent diagnostic mammogram. A superior to inferior approach was utilized. Multiple vacuum assisted core samples were obtained. Sampling was thought to be adequate and the biopsy clip marker was deployed in the region of biopsy. Additional imaging as detailed below was performed. Specimen radiograph: Calcifications confirmed adequate Post procedure routine CC and MLO view mammogram: Post biopsy changes. Biopsy marker clip noted to be in the appropriate location. Patient tolerated the procedure well. No immediatecomplications. IMPRESSION: 1. Technically successful stereotactic guided biopsy of left upper outer quadrant calcifications 2. Biopsy marker clip deployed 3. Post biopsy mammogram obtained as above Authenticated and [facility]
--- NOTE | 2022-09-23 09:39 | MM_ITS ---
FINAL REPORT CLINICAL HISTORY: Stereotactic biopsy of 2 separate suspicious groups of left breast calcifications FINDINGS: MAMMOGRAM LEFT TECHNIQUE: Standard digital 2-D views COMPARISON: 08-27-22, 08-22-22 and 08-21-22 DENSITY: There are scattered areas of fibroglandular density FINDINGS: Post biopsy marker clips are noted to be in satisfactory position. Postbiopsy changes are noted. Calcifications of interest are fewer in number reflecting adequate sampling. IMPRESSION: Biopsy marker clip in good position RECOMMENDATION: Pending histopathology evaluation Authenticated and [facility]
--- NOTE | 2022-09-23 11:28 | MM_ITS ---
FINAL REPORT CLINICAL HISTORY: lt breast calcs FINDINGS: 2 separate surgical specimen radiographs were obtained of 2 separately biopsied groups of calcifications in the left breast. One group was seen in the left upper outer quadrant. A 2nd group was noted in the inferior left breast at 6:00. Specimen radiographs of both biopsy samples show the calcifications of interest contained within core specimen. Heterogeneous calcifications were localized within at least 2 of the samples from the left upper outer quadrant biopsy. Linear calcifications were seen in at least 3 of the samples of the grouped calcifications at 6:00 left breast IMPRESSION: Specimen radiographs of 2 separate biopsies of the left breast confirm adequate sampling Authenticated and [facility]
== END ==
PROVIDERS: PCP Family Medicine; Visit Provider Surgery
DX: R92.1 Mammographic calcification found on diagnostic imaging of breast (principal)
CPT/HCPCS: 19081; 19082; 76098; 77065

== ENCOUNTER → 2022-10-22 10:41 | Outpatient (CLI) | payer OTHER, SELFPAY ==
--- NOTE | 2022-10-22 10:50 | ECG_ITS ---
APPROVED REPORT Exam: Resting ECG HR:57 bpm ECG Measurements Heart Rate 57 AXES OH 133 P 31 QRSd 96 QRS 3 QT 405 T 11 QTc 398 Conclusion SINUS BRADYCARDIA WITH SINUS ARRHYTHMIA LOW QRS VOLTAGE IN PRECORDIAL LEADS [QRS DEFLECTION < 1.0 mV IN CHEST LEADS] PATTERN CONSISTENT WITH PULMONARY DISEASE ABNORMAL ECG UNCONFIRMED REPORT Electronically signed by : Baltazar Posey MD 10/22/2022 20:08:55
[2022-10-22 11:54] LABS: Basophils # 0.1 K/mm3 (0-0.2); Basophils % 0.8 % (0.1-2.0); Eosinophils # 0.4 K/mm3 (0.0-0.4); Eosinophils % 5.1 % (0.1-12.0); Hematocrit 40.5 % (37.0-47.0); Hemoglobin 13.2 g/dL (12.2-16.2); Lymphocytes # 1.4 K/mm3 (0.7-4.5); Lymphocytes % 19.7 % (10-50); Mean Corpuscular HGB Conc 32.6 g/dL (31.8-35.4); Mean Corpuscular Volume 88.8 fl (81-99); Mean Platelet Volume 8.3 fl (7.4-10.4); Monocytes # 0.6 K/mm3 (0.1-1.0); Monocytes % 8.6 % (1.7-9.3); Neutrophils # 4.7 K/mm3 (1.8-7.8); Neutrophils % 65.9 % (37.0-80.0); Platelet Count 346 K/mm3 (142-424); Red Blood Count 4.56 M/mm3 (4.20-5.40); Red Cell Distribution Width 13.5 % (11.5-17.5); White Blood Count 7.1 K/mm3 (4.8-10.8)
[2022-10-22 12:43] LABS: Anion Gap 13.9 mEq/L (5-15); Blood Urea Nitrogen 7 mg/dl (7-17); Calcium 8.8 mg/dl (8.4-10.2); Carbon Dioxide 30 mmol/L (22.0-30.0); Chloride 99 mmol/L (98-107); Estimated Glomerular Filt Rate 125 ml/min (>60); GFR (African American) 151 ML/MIN (>60); Glucose 84 mg/dl (74-100); Potassium 3.9 mmoL/L (3.5-5.1); Sodium 139 mmol/L (136-145)
== END ==
PROVIDERS: PCP Family Medicine; Visit Provider Surgery
DX: D05.12 Intraductal carcinoma in situ of left breast (principal); Z01.818 Encounter for other preprocedural examination
CPT/HCPCS: 36415; 80048; 85025; 93005

== ENCOUNTER 2022-10-24 11:33 | Inpatient (IN) | payer OTHER, SELFPAY ==
[2022-10-24] VITALS (21 sets, daily range): BP systolic 105–161; BP diastolic 64–98; PULSE 59–90; RESP 12–22; TEMP 36.4–43; O2SAT 90–99; BMI 39.6
--- NOTE | 2022-10-24 10:54 | SUR.PREOP ---
Per Irena Villegas, RN (dope house operator helper) pt will be going to room 208
[2022-10-24 11:16] LABS: Coronavirus 19, PCR Not Detected (NotDetected); Influenza A, PCR Not Detected (NotDetected); Influenza B, PCR Not Detected (NotDetected)
--- NOTE | 2022-10-24 11:35 | EXP.GEN.HP ---
HPI HPI HPI: The patient presents for left mastectomy. Forwarded from October 02, 2022 note (office visit): The patient returns from stereotactic core biopsy of left breast calcifications.? Pathology regarding the left upper outer quadrant lesion revealed benign changes.? The left central/inferior breast at 6:00 lesion was negative for invasive carcinoma.? 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 Forwarded from September 11, 2022 note: This is a 62-year-old female seen in consultation from her primary care provider for evaluation regarding a mammographic anomaly of the left breast.? She is status post excision of a left breast lesion in 2019 that was found to be pathologically benign.? At the time of her most recent surgical evaluation in August 2020 no significant abnormalities were noted with regard to her breast evaluation or mammogram.? Bilateral mammogram follow-up on August 06, 2022 resulted in the need for additional spot magnification views of the left breast.? Additional spot magnification views of the left breast were completed on August 16, 2022.? Stereotactic biopsy was recommended for segmental branching of calcifications that were seen in the central left breast.? However, additional calcifications in the lateral anterior third of the left breast were not well demonstrated; therefore, additional full lateral and magnification views of the upper left breast were recommended.? These additional images were completed on August 27.? In addition to the central 5 cm grouping of branching and linear calcifications initially deemed suspicious there was a 1.5 cm cluster of faint pleomorphic calcifications in the upper outer anterior left breast about 5 cm superior and lateral to the dominant cluster.? Biopsy of both of these clusters recommended. (1) Abnormal mammogram of left breast: ?Plan: Stereotactic core biopsies of above-stated anomalies (see HPI) ordered. The patient has reconsidered her options and now wishes to undergo left mastectomy.? She does not wish to undergo breast conservation surgery. I have discussed the risks and benefits including, but not limited to: Bleeding Infection Damage to surrounding tissue Inherent risks of sedation The patient agrees to proceed [facility] Disclaimer: The information contained in this section may have been updated after the patient was seen, as this information can be updated by other users. Medical History Asthma Depression Left breast mass s/p excision in 05/2019 (benign) Surgical History Deviated nasal septum H/O colonoscopy with polypectomy 2019, repeat due 2024 H/O lumpectomy H/O total hysterectomy Due to Fibroids History of appendectomy History of cholecystectomy History of colonoscopy Hx of tonsillectomy Family History Other Heart attack Hypertension Kidney disease Social History Smoking Status: Former smoker years smoked: 20 smoking status stop date: 1996 how long ago did patient quit smoking: >20 second hand exposure: No alcohol intake: current substance use type: denies use current occupational status: retired Travel in the last 8 weeks: None household members: spouse housing: house marital status: number of children: 2 current occupation: [employer] current occupational expo
--- NOTE | 2022-10-24 11:53 | HMH.PHAINT1 ---
Pharmacy Intervention Comments: MEDICATION RECONCILIATION COMPLETED ON PATIENT USING EXTERNAL FILL HISTORY FROM PHARMACY AND LIST FROM PCP OFFICE. -ASHOK ASIF, RIKYD
--- NOTE | 2022-10-24 12:51 | EXP.ANES.CKL ---
[facility] Disclaimer: The information contained in this section may have been updated after the patient was seen, as this information can be updated by other users. Medical History Asthma Depression Left breast mass Surgical History Deviated nasal septum H/O colonoscopy with polypectomy H/O lumpectomy H/O total hysterectomy History of appendectomy History of cholecystectomy History of colonoscopy Hx of tonsillectomy Family History Other Heart attack Hypertension Kidney disease Social History Smoking Status: Former smoker years smoked: 20 smoking status stop date: 1996 how long ago did patient quit smoking: >20 second hand exposure: No alcohol intake: current substance use type: denies use current occupational status: retired Travel in the last 8 weeks: None household members: spouse housing: house marital status: number of children: 2 current occupation: [employer] current occupational exposures/hazards: No caffeine: Yes [facility] Anesthesia Checklist Patient Identification Patient Identification: Arm Band and Verbal (Name & ) Structural Data Admitted From: Home Planned Operative Procedure/s: Mastectomy Consent for Planned Operative Procedure(s) Verified: Yes NPO Status Verified Time NPO: 00:00 Additional verifications Anesthesia Reactions: No Hx Blood Transfusions: No Blood Transfusion Reaction: No Airway Assessment C-Spine Mobility Assessed: Yes TMJ Mobility Assessed: Yes Dentition: Good Dentition Neurological Assessment Level of Consciousness: Awake Hx Seizures: No Numbness or tingling in extremities: No Anesthesia Plan Anesthesia Risk discussed: Yes Anesthesia Plan: Verified ASA Class: II Anesthesia Type: General
--- NOTE | 2022-10-24 13:12 | EXP.OP.NOTE ---
Date of procedure: 10/24/22 Pre-op Diagnosis:: Left breast ductal carcinoma in situ Post-op Diagnosis:: Same Procedure performed:: Left mastectomy Surgeon:: Kel Jordan MD Anesthesia: GETA Estimated blood loss (mL): 50 Operative findings:: Eric-Gimenez drain (#10 flat) placed along wound base Operative note:: After informed consent was obtained the patient was taken to the operating room and placed in the supine position. Her left chest was prepped and draped in a sterile fashion. An elliptical incision was made to include the nipple/areolar complex. A superior flap was then raised with a combination of sharp dissection and electrocautery. The inferior flap was raised in a similar manner. Electrocautery was utilized to transect the breast tissue to the level of the fascial margin of the pectoralis. The breast tissue was then excised from the pectoralis with electrocautery. The breast was marked for margin (short superior/long lateral) and passed off for pathologic evaluation. An additional extension of axillary tail tissue was excised and passed off as a separate specimen. Electrocautery was utilized to achieve hemostasis. The wound was thoroughly irrigated. A #10 flat Eric-Gimenez drain was placed in position and exited through a separate anterior axillary stab incision. The drain was secured with interrupted nylon suture. The deep subcutaneous tissue was reapproximated with interrupted 9 undyed Vicryl. Skin was then closed with 3-0 Monocryl STRATAFIX. Steri-Strips and pressure dressings were applied. The patient was transferred to recovery in stable condition Condition: stable Disposition: PACU Specimens:: Left breast Extended left breast axillary tail Complications:: No immediate
--- NOTE | 2022-10-24 15:44 | P.PNANES_ITS ---
[facility] Anesthesia Record Part I Anesthesia Record I Intake, IV Amount: 1,000 Estimated blood loss (mL): 50 Urine output (mL): 0 Blood Products used (#): none Blood Pressure: 124/80 SaO2: 99 Pulse Rate: 78 Respiratory Rate: 22 Temperature: 97.5 F Patient is:: Drowsy and Stable Stable to PACU at:: 15:35
[2022-10-25] VITALS: BP 138/75; PULSE 70; RESP 16; TEMP 36.8; O2SAT 95
[2022-10-25 04:00] VITALS: BP 131/75; PULSE 60; RESP 20; TEMP 36.6; O2SAT 96; BMI 39.9
--- NOTE | 2022-10-25 06:18 | EXP.SURG.PN ---
Subjective Narrative: Patient feels well with no complaints or issues. Lab had difficulty drawing blood. Exam Data for Last 24 hours Vital signs and Labs for Last 24 Hours: Temp Pulse Resp BP Pulse Ox 97.8 F 60 20 131/75 96 10/25/22 04:00 10/25/22 04:00 10/25/22 04:00 10/25/22 04:00 10/25/22 04:00 Laboratory Results - last 24 hr 10/24/22 11:10: SARS-CoV-2 (PCR) Not detected, Influenza A Untype (PCR) Not detected, Influenza Type B (PCR) Not detected I & O for Last 24 hours: Intake & Output 10/22/22 10/23/22 10/24/22 10/25/22 11:59 11:59 11:59 11:59 Intake Total 1240 / 1240 Output Total 110 / 110 Balance 1130 / 1130 Weight 210 lb 211 lb 3.2 oz Routine Chest/Breast/Axilla Exam Comments: Some expected serosanguineous drainage in JASON. Incision clean with no evidence of hematoma or flap necrosis. Progress Note: A&P Assessment and plan (1) Ductal carcinoma in situ (DCIS) of left breast: Status: Acute Assessment and plan: Should be able to discharge home. (2) JOCELYNE (obstructive sleep apnea): Problem details: Diagnosed greater than 15 years ago, details unknown, intolerance to CPAP. Mild to moderate positional JOCELYNE following most recent home sleep study with evidence of hypoxemia. I suspect untreated JOCELYNE has been present for a long time and is likely a contributing factor and ischemic/gliotic changes as seen on brain MRI. Patient request additional CPAP trial in the setting of new technology. Excellent compliance with significant symptomatic improvement on AutoPap. Status: Acute (3) BMI 39.0-39.9,adult: Problem details: Additional 2 pound weight loss since last visit for a total of 7 pounds loss since last visit with lifestyle modifications including decrease portion sizes, intermittent fasting, exercises. Status: Acute (4) History of sleep apnea: Problem details: Unknown severity, diagnosed greater than 15 years ago, intolerant to CPAP, untreated since, patient believes she has gained unknown amount of weight since initial diagnosis. Status: Chronic
[2022-10-25 07:02] LABS: Anion Gap 13.9 mEq/L (5-15); Blood Urea Nitrogen 10 mg/dl (7-17); Calcium 8.4 mg/dl (8.4-10.2); Carbon Dioxide 23 mmol/L (22.0-30.0); Chloride 105 mmol/L (98-107); Creatinine Clearance Estimated 87 mL/min (50-200); Estimated Glomerular Filt Rate 161 ml/min (>60); GFR (African American) 195 ML/MIN (>60); Glucose 89 mg/dl (74-100); Potassium 4.9 mmoL/L (3.5-5.1); Sodium 137 mmol/L (136-145)
--- NOTE | 2022-10-25 07:07 | EXP.DC.SUM ---
General Admission date:: 10/24/22 Discharge date: 10/25/22 HPI HPI HPI: The patient presents for left mastectomy. Forwarded from October 02, 2022 note (office visit): The patient returns from stereotactic core biopsy of left breast calcifications.? Pathology regarding the left upper outer quadrant lesion revealed benign changes.? The left central/inferior breast at 6:00 lesion was negative for invasive carcinoma.? 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 Forwarded from September 11, 2022 note: This is a 62-year-old female seen in consultation from her primary care provider for evaluation regarding a mammographic anomaly of the left breast.? She is status post excision of a left breast lesion in 2019 that was found to be pathologically benign.? At the time of her most recent surgical evaluation in August 2020 no significant abnormalities were noted with regard to her breast evaluation or mammogram.? Bilateral mammogram follow-up on August 06, 2022 resulted in the need for additional spot magnification views of the left breast.? Additional spot magnification views of the left breast were completed on August 16, 2022.? Stereotactic biopsy was recommended for segmental branching of calcifications that were seen in the central left breast.? However, additional calcifications in the lateral anterior third of the left breast were not well demonstrated; therefore, additional full lateral and magnification views of the upper left breast were recommended.? These additional images were completed on August 27.? In addition to the central 5 cm grouping of branching and linear calcifications initially deemed suspicious there was a 1.5 cm cluster of faint pleomorphic calcifications in the upper outer anterior left breast about 5 cm superior and lateral to the dominant cluster.? Biopsy of both of these clusters recommended. (1) Abnormal mammogram of left breast: ?Plan: Stereotactic core biopsies of above-stated anomalies (see HPI) ordered. The patient has reconsidered her options and now wishes to undergo left mastectomy.? She does not wish to undergo breast conservation surgery. I have discussed the risks and benefits including, but not limited to: Bleeding Infection Damage to surrounding tissue Inherent risks of sedation The patient agrees to proceed Hospital Course Hospital Course Hospital Course: The patient underwent left mastectomy (please see operative report for details). Post-operatively, see progressed well. Pain was well-controlled and her vital signs remained normal. On the morning of post-operative day one, she was deemed appropriate for discharge home. She had no evidence of bleeding, infection, or necrosis. Exam Data for Last 24 hours Vital signs and Labs for Last 24 Hours: Temp Pulse Resp BP Pulse Ox 97.8 F 60 20 131/75 96 10/25/22 04:00 10/25/22 04:00 10/25/22 04:00 10/25/22 04:00 10/25/22 04:00 Laboratory Results - last 24 hr 10/24/22 11:10: SARS-CoV-2 (PCR) Not detected, Influenza A Untype (PCR) Not detected, Influenza Type B (PCR) Not detected 10/25/22 06:35: Sodium 137, Potassium 4.9 D, Chloride 105, Carbon Dioxide 23, Anion Gap 13.9, BUN 10 D, Creatinine 0.40 L, Estimated Creat Clear 87, Estimated GFR 161, Est GFR ( Amer) 195 D, Glucose 89, Calcium 8.4 I & O for Last 24 hours: Intake & Output 10/22/22 10/23/22 10/24/22 10/25/22 11:59 11:59 11:59 11:59 Intake Total 1240 / 1240 Output Total 140 / 140 Balance 1100 / 1100 Weight 210 lb 211 lb 3.2 oz Constitutional
[2022-10-25 08:00] VITALS: BP 140/75; PULSE 68; RESP 18; TEMP 36.7; O2SAT 97
[2022-10-25 08:24] LABS: Basophils % 0.4 % (0.1-2.0); Eosinophils # 0.2 K/mm3 (0.0-0.4); Eosinophils % 1.7 % (0.1-12.0); Hematocrit 38.3 % (37.0-47.0); Hemoglobin 12.8 g/dL (12.2-16.2); Lymphocytes # 1.6 K/mm3 (0.7-4.5); Lymphocytes % 18.5 % (10-50); Mean Corpuscular HGB Conc 33.4 g/dL (31.8-35.4); Mean Corpuscular Hemoglobin 29.8 pg (27.0-31.2); Mean Corpuscular Volume 89.3 fl (81-99); Mean Platelet Volume 9.7 fl (7.4-10.4); Monocytes # 0.5 K/mm3 (0.1-1.0); Monocytes % 5.9 % (1.7-9.3); Neutrophils # 6.4 K/mm3 (1.8-7.8); Neutrophils % 73.5 % (37.0-80.0); Platelet Count 310 K/mm3 (142-424); Red Cell Distribution Width 13.7 % (11.5-17.5); White Blood Count 8.7 K/mm3 (4.8-10.8)
--- NOTE | 2022-10-25 09:28 | PC.NURSE ---
COURTESY TECH NOTE; ROUNDED ON PT 0800, PT DENIED NEED FOR RESTROOM, NEED TO REPOSITION. ICE WATER BROUGHT AT PT REQUEST. CALL LIGHT WITHIN REACH, NO FURTHER REQUESTS AT THIS TIME. Valeria BROWN, ROSEANN
--- NOTE | 2022-10-25 09:30 | PC.NURSE ---
Went over dc instruction with patient and her daughter. JASON drain care demonstrated and both verbalized understanding. All questions answered.
--- NOTE | 2022-10-25 11:17 | P.PNANES_ITS ---
[facility] Anesthesia Record Part II Anesthesia Record Part II Discharge Time: 16:15 Destination: Surgical Day Care (OP Surgery) PACU nurse assessment reviewed?: Yes Patient Condition:: Good Anesthesia Complications:: None Swallowing reflex intact?: Yes Cyanosis?: No Blood Pressure: 146/79 Pulse Rate: 69 Temperature: 97.8 F Mental Status: Alert & Oriented Pain level:: 3 Nausea and/or vomitting:: None Intake, IV Amount: 0
[2022-10-25 11:18] VITALS: BP 146/79; PULSE 69; TEMP 36.6
--- NOTE | 2022-10-28 14:31 | CARE MANAGER ---
Contacted patient related to hospital discharge. She states she is doing well. She denies any questions or concerns. ANDREW Moody
== END 2022-10-25 10:40 | disposition home or self-care (01) | DRG 583 ==
LOC: 2ND 11:35
PROVIDERS: Admitting Provider Surgery; PCP Family Medicine; Visit Provider Surgery
PROC: 0HTU0ZZ Resection of Left Breast, Open Approach (ICD-10-PCS; principal; 2022-10-24 10:45)
DX: D05.12 Intraductal carcinoma in situ of left breast (principal); J45.909 Unspecified asthma, uncomplicated; F32.A Depression, unspecified; Z86.69 Personal history of other diseases of the nervous system and sense organs; Z68.39 Body mass index [BMI] 39.0-39.9, adult; G47.33 Obstructive sleep apnea (adult) (pediatric)
CPT/HCPCS: 19303; 36415; 80048; 85025; 87636; 94640; 96374; C9803; J2405; U0003; U0005

== ENCOUNTER → 2023-04-07 10:51 | Outpatient (CLI) | payer OTHER, SELFPAY ==
--- NOTE | 2023-04-07 11:01 | XR_ITS ---
FINAL REPORT CLINICAL HISTORY: cough, dyspnea, fatigue COMPARISON: 06/20/2022 FINDINGS: 2 views of the chest were obtained . The heart is normal in size. The mediastinum is within normal limits. The lungs are clear. There is no pneumothorax. Osseous structures are unremarkable. IMPRESSION: No acute cardiopulmonary process. Reviewed, Interpreted and Dictated by Gurjit Moya III, MD Transcribed by Trisha Muñoz Authenticated and [facility]
[2023-04-07 12:44] LABS: Basophils # 0.1 K/mm3 (0-0.2); Basophils % 0.7 % (0.1-2.0); Eosinophils # 0.2 K/mm3 (0.0-0.4); Eosinophils % 2.1 % (0.1-12.0); Hematocrit 45.6 % (37.0-47.0); Hemoglobin 15.3 g/dL (12.2-16.2); Lymphocytes % 20.5 % (10-50); Mean Corpuscular HGB Conc 33.5 g/dL (31.8-35.4); Mean Corpuscular Hemoglobin 30.9 pg (27.0-31.2); Mean Corpuscular Volume 92.5 fl (81-99); Mean Platelet Volume 8.5 fl (7.4-10.4); Monocytes # 0.6 K/mm3 (0.1-1.0); Monocytes % 6.5 % (1.7-9.3); Neutrophils # 6.9 K/mm3 (1.8-7.8); Neutrophils % 70.3 % (37.0-80.0); Platelet Count 332 K/mm3 (142-424); Red Blood Count 4.93 M/mm3 (4.20-5.40); White Blood Count 9.8 K/mm3 (4.8-10.8)
[2023-04-07 13:02] LABS: Alanine Aminotransferase 32 U/L (12-78); Albumin Level 4.1 g/dl (3.5-5.0); Albumin/Globulin Ratio 1.4 (1.1-1.8); Alkaline Phosphatase 105 U/L (38-126); Anion Gap 11.3 mEq/L (5-15); Aspartate Amino Transferase 31 U/L (14-36); Bilirubin,Total 0.4 mg/dl (0.2-1.3); Blood Urea Nitrogen 11 mg/dl (7-17); Calcium 9.2 mg/dl (8.4-10.2); Carbon Dioxide 29 mmol/L (22.0-30.0); Chloride 102 mmol/L (98-107); Estimated Glomerular Filt Rate 101 ml/min (>60); GFR (African American) 122 ML/MIN (>60); Globulin 2.9 g/dL (1.3-3.2); Glucose 78 mg/dl (74-100); Potassium 4.3 mmoL/L (3.5-5.1); Sodium 138 mmol/L (136-145)
[2023-04-07 13:06] LABS: C-Reactive Protein 3.4 mg/L (0-4)
[2023-04-10 18:26] LABS: Aspergillus flavus Negative (Neg:<1:1); Aspergillus fumigatus Negative (Neg:<1:1); Aspergillus niger Negative (Neg:<1:1); Blastomyces Antibody Negative (Neg:<1:1); Histoplasma Antibody Quant Negative (Neg:<1:1)
== END ==
PROVIDERS: Internal Medicine Pulmonary Disease; PCP Nurse Practitioner Family; Visit Provider Nurse Practitioner Family
DX: R06.09 Other forms of dyspnea (principal); J98.8 Other specified respiratory disorders; R05.9 Cough, unspecified; R91.1 Solitary pulmonary nodule; J84.10 Pulmonary fibrosis, unspecified
CPT/HCPCS: 71046; 80053; 85025; 86140; 86606; 86612; 86698; 87070; 87205

== ENCOUNTER → 2023-04-07 15:18 | Outpatient (CLI) | payer OTHER, SELFPAY | PROVIDERS: PCP Nurse Practitioner Family; Visit Provider Nurse Practitioner Family | DX: R06.09 Other forms of dyspnea (principal) ==

== ENCOUNTER → 2023-04-11 09:41 | Outpatient (CLI) | payer OTHER, SELFPAY ==
--- NOTE | 2023-04-11 09:46 | XR_ITS ---
FINAL REPORT CLINICAL HISTORY: Nonspecific cough COMPARISON: 04/07/2023 FINDINGS: Two views of the chest were obtained. The heart size and pulmonary vascularity are within normal limits. The mediastinum is normal. No acute pulmonary abnormality is identified. There is no pneumothorax. The bony thorax is intact. IMPRESSION: No active cardiopulmonary disease. Reviewed, Interpreted and Dictated by Gurjit Moya III, MD Transcribed by Mirtha Robb Authenticated and . [facility]
== END ==
PROVIDERS: PCP Nurse Practitioner Family; Visit Provider Internal Medicine Pulmonary Disease
DX: R05.9 Cough, unspecified (principal)
CPT/HCPCS: 71046

== ENCOUNTER → 2023-05-15 12:45 | Outpatient (CLI) | payer OTHER, SELFPAY | PROVIDERS: PCP Nurse Practitioner Family; Visit Provider Internal Medicine Pulmonary Disease | DX: R06.09 Other forms of dyspnea (principal) | CPT/HCPCS: 94060; 94618; 94726; 94729 ==

== ENCOUNTER 2023-07-11 14:59 | Outpatient (CLI) | payer OTHER, SELFPAY ==
[2023-07-11 13:39] LABS: Microscopic, Urine URINE MICROSCOPIC (MICROSCOPIC)
[2023-07-11 14:26] LABS: Appearance,Urine CLEAR (Clear); Bilirubin,Urine Negative (Negative); Blood, Urine TRACE-I (Negative); Color,Urine YELLOW (Yellow); Glucose,Urine (UA) Negative (Negative); Ketones,Urine Negative (Negative); Leukocyte Esterase,Urine Negative (Negative); Nitrate,Urine Negative (Negative); Protein,Urine Negative (Negative); Specific Gravity, Urine 1.025 (1.005-1.030); Urobilinogen,Urine 0.2 EU/dl (0.2)
[2023-07-11 14:29] LABS: Basophils # 0.1 K/mm3 (0-0.2); Basophils % 0.7 % (0.1-2.0); Eosinophils # 0.3 K/mm3 (0.0-0.4); Eosinophils % 2.7 % (0.1-12.0); Hematocrit 42.4 % (37.0-47.0); Hemoglobin 14.2 g/dL (12.2-16.2); Lymphocytes # 1.5 K/mm3 (0.7-4.5); Mean Corpuscular HGB Conc 33.4 g/dL (31.8-35.4); Mean Corpuscular Hemoglobin 30.5 pg (27.0-31.2); Mean Corpuscular Volume 91.3 fl (81-99); Mean Platelet Volume 9.3 fl (7.4-10.4); Monocytes # 0.8 K/mm3 (0.1-1.0); Monocytes % 7.7 % (1.7-9.3); Neutrophils # 7.5 K/mm3 (1.8-7.8); Platelet Count 338 K/mm3 (142-424); Red Blood Count 4.65 M/mm3 (4.20-5.40); Red Cell Distribution Width 13.6 % (11.5-17.5); White Blood Count 10.1 K/mm3 (4.8-10.8)
[2023-07-11 14:40] LABS: Bacteria,Urine Trace /lpf; Calcium Oxalate Crystals,Urine 3+ /lpf; Squamous Epithelial Cell,Urine Occasional #/hpf (0-5); WBC,Urine Occasional #/hpf (0-3)
[2023-07-11 14:56] LABS: Alanine Aminotransferase 37 U/L (12-78); Albumin Level 3.8 g/dl (3.5-5.0); Albumin/Globulin Ratio 1.5 (1.1-1.8); Alkaline Phosphatase 108 U/L (38-126); Anion Gap 10.3 mEq/L (5-15); Aspartate Amino Transferase 42 U/L (14-36); Bilirubin,Total 0.2 mg/dl (0.2-1.3); Blood Urea Nitrogen 15 mg/dl (7-17); Carbon Dioxide 28 mmol/L (22.0-30.0); Chloride 106 mmol/L (98-107); Chol/HDL Ratio 2.9 (1-3.5); Cholesterol 190 mg/dl (140-200); Estimated Glomerular Filt Rate 84 ml/min (>60); GFR (African American) 102 ML/MIN (>60); Globulin 2.5 g/dL (1.3-3.2); Glucose 80 mg/dl (74-100); HDL Cholesterol 66 mg/dl (40-60); Potassium 4.3 mmoL/L (3.5-5.1); Sodium 140 mmol/L (136-145); Total Protein,Serum 6.3 g/dl (6.3-8.2); Triglycerides 64 mg/dl (30-150); VLDL Cholesterol 13 mg/dL (0-40)
[2023-07-11 15:07] LABS: Direct LDL Cholesterol 103.11 mg/dL (100-129)
[2023-07-11 15:14] LABS: 25-OH Vitamin D, Total 35.5 ng/mL (30-100); Free T4 (Free Thyroxine) 0.95 ng/dl (0.78-2.19)
[2023-07-11 15:18] LABS: Hemoglobin A1C 5.2 % (4.0-6.0)
[2023-07-11 15:27] LABS: Thyroid Stimulating Hormone 2.97 uIU/mL (0.465-4.68)
[2023-07-11 15:46] LABS: Vitamin B12 751 pg/mL (239-931)
== END 2023-07-11 23:59 ==
LOC: LAB.DROPOF 14:59
PROVIDERS: PCP Nurse Practitioner Family; Visit Provider Nurse Practitioner Family
DX: R04.2 Hemoptysis (principal); E55.9 Vitamin D deficiency, unspecified; R53.83 Other fatigue; G47.33 Obstructive sleep apnea (adult) (pediatric); Z13.1 Encounter for screening for diabetes mellitus; Z13.220 Encounter for screening for lipoid disorders; Z79.899 Other long term (current) drug therapy; B96.89 Other specified bacterial agents as the cause of diseases classified elsewhere
CPT/HCPCS: 80053; 80061; 81001; 82306; 82607; 83036; 84439; 84443; 85025; 87086

== ENCOUNTER 2023-08-11 17:43 | Outpatient (CLI) | payer OTHER, SELFPAY ==
[2023-08-11 17:41] LABS: Basophils # 0.1 K/mm3 (0-0.2); Basophils % 0.7 % (0.1-2.0); Eosinophils # 0.3 K/mm3 (0.0-0.4); Eosinophils % 1.9 % (0.1-12.0); Hematocrit 42.8 % (37.0-47.0); Hemoglobin 14.1 g/dL (12.2-16.2); Lymphocytes # 1.9 K/mm3 (0.7-4.5); Lymphocytes % 13.7 % (10-50); Mean Corpuscular HGB Conc 32.9 g/dL (31.8-35.4); Mean Corpuscular Hemoglobin 30.7 pg (27.0-31.2); Mean Corpuscular Volume 93.1 fl (81-99); Monocytes # 1.1 K/mm3 (0.1-1.0); Monocytes % 8.2 % (1.7-9.3); Neutrophils # 10.1 K/mm3 (1.8-7.8); Neutrophils % 75.4 % (37.0-80.0); Platelet Count 347 K/mm3 (142-424); Red Cell Distribution Width 13.6 % (11.5-17.5); White Blood Count 13.4 K/mm3 (4.8-10.8)
[2023-08-11 18:21] LABS: Erythrocyte Sedimentation Rate 26 mm/hr (0-30)
[2023-08-11 18:39] LABS: Alanine Aminotransferase 32 U/L (12-78); Albumin/Globulin Ratio 1.4 (1.1-1.8); Alkaline Phosphatase 112 U/L (38-126); Anion Gap 10.9 mEq/L (5-15); Aspartate Amino Transferase 34 U/L (14-36); Bilirubin,Total 0.4 mg/dl (0.2-1.3); Blood Urea Nitrogen 8 mg/dl (7-17); Calcium 9.1 mg/dl (8.4-10.2); Carbon Dioxide 29 mmol/L (22.0-30.0); Chloride 103 mmol/L (98-107); Estimated Glomerular Filt Rate 101 ml/min (>60); GFR (African American) 122 ML/MIN (>60); Globulin 2.8 g/dL (1.3-3.2); Glucose 85 mg/dl (74-100); Potassium 3.9 mmoL/L (3.5-5.1); Sodium 139 mmol/L (136-145); Total Protein,Serum 6.8 g/dl (6.3-8.2)
[2023-08-11 18:46] LABS: C-Reactive Protein 44.4 mg/L (0-4)
[2023-08-13 11:05] LABS: Mumps Abs, IgG >300.0 AU/mL (Immune >10.9)
[2023-08-14 23:08] LABS: Mumps Antibodies, IgM 1.18 AU (0.00-0.79)
== END 2023-08-11 23:59 ==
LOC: LAB.DROPOF 17:43
PROVIDERS: PCP Nurse Practitioner Family; Visit Provider Nurse Practitioner Family
DX: K11.21 Acute sialoadenitis (principal); R68.84 Jaw pain; R60.0 Localized edema; R09.89 Other specified symptoms and signs involving the circulatory and respiratory systems; M79.10 Myalgia, unspecified site; R50.9 Fever, unspecified
CPT/HCPCS: 80053; 85025; 85651; 86140; 86735

== ENCOUNTER 2023-08-15 08:15 | Outpatient (CLI) | payer OTHER, SELFPAY ==
--- NOTE | 2023-08-15 08:16 | XR_ITS ---
FINAL REPORT CLINICAL HISTORY: osteoporosis screening COMPARISON: None FINDINGS: Using L1-4, the bone mineral density of the spine is 1.022 g/cm2, corresponding to T-score of -0.2 which is within normal limits. Using the left hip, the bone mineral density of the femoral neck is 0.955 g/cm2, corresponding to a T-score of 0.1 which is within normal limits. Using the right hip, the bone mineral density of the femoral neck is 0.862 g/cm2, corresponding to a T-score of 0.1 which is within normal limits. FRAX not reported because all T-scores at or above -1.0. NOTE: T-score: Standard deviation compared with peak bone mass of young adult mean. *Following the recommendations of the International Society of Bone densitometry, classification of hip BMD is based on the lower of two T-scores; total hip or femoral neck. IMPRESSION: Normal bone mineral density of the lumbar spine and hips. Reviewed, Interpreted and Dictated by Gurjit Moya III, MD Transcribed by Mirtha Robb Authenticated and [facility]
--- NOTE | 2023-08-15 08:38 | MM_ITS ---
PROCEDURE INFORMATION: Exam: MG Right Screening 3D Mammography Exam date and time: 08/15/2023 8:31 AM Age: 63 years old Clinical indication: Screening right breast mammogram. Left mastectomy for carcinoma TECHNIQUE: Imaging protocol: Right Screening tomosynthesis and 2D mammography including computer-aided detection (CAD) when performed. COMPARISON: 1. MG MM CLIP PLACEMENT LT 09/23/2022 11:28 AM 2. MG MM SURGICAL SPECIMEN LT 09/23/2022 11:19 AM 3. MG MM SURGICAL SPECIMEN LT 09/23/2022 10:38 AM 4. MG MM DIG MAMM DX UNILAT LT CAD 08/27/2022 2:33 PM FINDINGS: MAMMOGRAPHY: Breast composition: There are scattered areas of fibroglandular density. Mass: None. Architectural distortion: No new or suspicious architectural distortion. Calcifications: No new or suspicious calcifications are present Asymmetric density: No new or suspicious asymmetric density is present Skin thickening: None. Axillary adenopathy: None. IMPRESSION: No mammographic evidence of malignancy. Recommend annual screening mammography unless otherwise clinically indicated. ASSESSMENT: BI-RADS category 1: Negative.
--- NOTE | 2023-08-15 09:10 | CT_ITS ---
FINAL REPORT TECHNIQUE: Thin section axial CT images with coronal and sagittal reformats were performed before and after the administration of IV contrast. This study was performed with techniques to keep radiation doses as low as reasonably achievable (ALARA). Individualized dose reduction techniques using automated exposure control or adjustment of mA and/or kV according to the patient's size were employed. CLINICAL HISTORY: right parotid gland edema COMPARISON: None FINDINGS: CT NECK SOFT TISSUE WITH AND WITHOUT CONTRAST: The nasopharynx, oropharynx, larynx, and hypopharynx are unremarkable in appearance. There is mild mucosal thickening present in the right sphenoid sinus. There is a 3 mm low-density nodule present in the right thyroid lobe, likely benign. The salivary glands appear unremarkable. There are multiple small and borderline in size bilateral cervical nodes identified. IMPRESSION: Mild mucosal thickening right sphenoid sinus. Multiple small and borderline in size bilateral cervical nodes present, with unremarkable appearing salivary glands. Reviewed, Interpreted and Dictated by Gurjit Moya III, MD Transcribed by Sharonda Kimball Authenticated and [facility]
--- NOTE | 2023-08-15 09:10 | CT_ITS ---
FINAL REPORT TECHNIQUE: Multiple axial CT angiography images were performed from the foramen magnum to the vertex without and with IV contrast administration. This study was performed with techniques to keep radiation doses as low as reasonably achievable (ALARA). Individualized dose reduction techniques using automated exposure control or adjustment of mA and/or kV according to the patient's size were employed. CLINICAL HISTORY: right parotid gland edema COMPARISON: None FINDINGS: CT HEAD WITH AND WITHOUT CONTRAST: The ventricles are normal in size and configuration. No extra-axial fluid collections are identified. No mass effect or midline shift are seen. No focal bony abnormality is identified. IMPRESSION: Unremarkable CT scan of the head with and without contrast. Reviewed, Interpreted and Dictated by Gurjit Moya III, MD Transcribed by Sharonda Kimball Authenticated and [facility]
[2023-08-15] MEDS: SODIUM CHLORIDE 0.9% 10ML SYR (RAD ONLY) 10 ML IV (10:51)
[2023-08-15] MEDS: IOPAMIDOL-370 (76%);100ML BOTTLE 75 ML IV (10:51)
== END 2023-08-15 23:59 ==
PROVIDERS: PCP Nurse Practitioner Family; Visit Provider Nurse Practitioner Family
DX: Z13.820 Encounter for screening for osteoporosis (principal); Z78.0 Asymptomatic menopausal state; K11.21 Acute sialoadenitis
CPT/HCPCS: 70470; 70492; 77063; 77067; 77080; Q9967

== ENCOUNTER 2023-08-26 09:17 | Outpatient (CLI) | payer OTHER, SELFPAY ==
--- NOTE | 2023-08-26 09:18 | US_ITS ---
FINAL REPORT CLINICAL HISTORY: thyroid nodule COMPARISON: None FINDINGS: THYROID ULTRASOUND: The right lobe of the thyroid measures 3.65 x 1.7 x 1.5 cm in size. There are several nodules present in the right lobe of the thyroid gland. There is a 5 x 4 x 3 mm cystic nodule present, a TI-RADS category 1 nodule. There is another 6 x 5 x 5 mm cystic nodule present, also a TI-RADS category 1 nodule. The left lobe of the thyroid gland measures 3.8 x 1.6 x 1.4 cm in size. There is a solid isoechoic nodule in the left lobe of the thyroid measuring 6 x 6 x 4 mm in size. The isthmus measures 5 mm in thickness and is unremarkable in appearance. IMPRESSION: Subcentimeter bilateral thyroid nodules, some of which are described in the above findings. According to TI-RADS categorization none of these nodules require follow-up at this time. Reviewed, Interpreted and Dictated by Gurjit Moya III, MD Transcribed by Sharonda Kimball Authenticated and [facility]
== END 2023-08-26 23:59 ==
LOC: RAD 09:18
PROVIDERS: PCP Nurse Practitioner Family; Visit Provider Nurse Practitioner Family
DX: E04.1 Nontoxic single thyroid nodule (principal)
CPT/HCPCS: 76536

== ENCOUNTER 2024-03-04 10:00 | Outpatient (RCR) | payer OTHER, SELFPAY | END 2024-03-04 23:59 | disposition home or self-care (01) | LOC: OT 10:00 | PROVIDERS: Visit Provider Nurse Practitioner Family | DX: M79.622 Pain in left upper arm (principal); M25.512 Pain in left shoulder | CPT/HCPCS: 97014; 97035; 97110; 97140; 97165; 97530; G0283 ==

== ENCOUNTER 2024-07-19 15:41 | Outpatient (CLI) | payer MEDICARE, SELFPAY ==
[2024-07-19 12:31] LABS: Microscopic, Urine URINE MICROSCOPIC (MICROSCOPIC)
[2024-07-19 12:55] LABS: Appearance,Urine CLEAR (Clear); Bilirubin,Urine Negative (Negative); Blood, Urine Negative (Negative); Color,Urine YELLOW (Yellow); Glucose,Urine (UA) Negative (Negative); Ketones,Urine Negative (Negative); Leukocyte Esterase,Urine Negative (Negative); Nitrate,Urine Negative (Negative); Protein,Urine Negative (Negative); Urobilinogen,Urine 0.2 EU/dl (0.2)
[2024-07-19 12:56] LABS: Basophils # 0.1 K/mm3 (0-0.2); Basophils % 1.2 % (0.1-2.0); Eosinophils # 0.4 K/mm3 (0.0-0.4); Eosinophils % 5.3 % (0.1-12.0); Hematocrit 44.8 % (37.0-47.0); Hemoglobin 14.5 g/dL (12.2-16.2); Lymphocytes # 0.8 K/mm3 (0.7-4.5); Lymphocytes % 11.9 % (10-50); Mean Corpuscular HGB Conc 32.4 g/dL (31.8-35.4); Mean Corpuscular Volume 89.6 fl (81-99); Mean Platelet Volume 11.4 fl (7.4-10.4); Monocytes # 0.5 K/mm3 (0.1-1.0); Monocytes % 8.1 % (1.7-9.3); Neutrophils # 4.9 K/mm3 (1.8-7.8); Platelet Count 358 K/mm3 (142-424); Red Cell Distribution Width 13.4 % (11.5-17.5); White Blood Count 6.7 K/mm3 (4.8-10.8)
[2024-07-19 13:31] LABS: Bacteria,Urine 2+ /lpf; WBC,Urine Occasional #/hpf (0-3)
[2024-07-19 13:42] LABS: Hemoglobin A1C 5.2 % (4.0-6.0)
[2024-07-19 13:44] LABS: Albumin Level 4.5 g/dl (3.5-5.0); Chloride 105 mmol/L (98-107); Potassium 4.9 mmoL/L (3.5-5.1); Sodium 140 mmol/L (136-145)
[2024-07-19 13:46] LABS: Blood Urea Nitrogen 11 mg/dl (7-17); Estimated Glomerular Filt Rate 124 ml/min (>60); GFR (African American) 150 ML/MIN (>60)
[2024-07-19 13:47] LABS: Alanine Aminotransferase 30 U/L (12-78); Albumin/Globulin Ratio 1.8 (1.1-1.8); Alkaline Phosphatase 99 U/L (38-126); Anion Gap 11.9 mEq/L (5-15); Aspartate Amino Transferase 38 U/L (14-36); Bilirubin,Total 0.5 mg/dl (0.2-1.3); Calcium 9.3 mg/dl (8.4-10.2); Carbon Dioxide 28 mmol/L (22.0-30.0); Chol/HDL Ratio 2.8 (1-3.5); Cholesterol 195 mg/dl (140-200); Globulin 2.5 g/dL (1.3-3.2); Glucose 85 mg/dl (74-100); HDL Cholesterol 69 mg/dl (40-60); Iron 142 ug/dL (37-170); Triglycerides 73 mg/dl (30-150); VLDL Cholesterol 15 mg/dL (0-40)
[2024-07-19 13:59] LABS: Direct LDL Cholesterol 96.22 mg/dL (100-129)
[2024-07-19 14:01] LABS: Free T4 (Free Thyroxine) 0.96 ng/dl (0.78-2.19)
[2024-07-19 14:03] LABS: Total Iron Binding Capacity 335 ug/dL (265-497)
[2024-07-19 14:18] LABS: Thyroid Stimulating Hormone 2.93 uIU/mL (0.465-4.68)
[2024-07-19 14:23] LABS: Ferritin 45.2 ng/ml (11.1-264)
[2024-07-19 14:29] LABS: HIV Combo NEGATIVE (Negative)
[2024-07-19 14:35] LABS: Hepatitis C Ab Qual. W/ RFX NEGATIVE (Negative)
[2024-07-19 14:53] LABS: Vitamin B12 875 pg/mL (239-931)
== END 2024-07-19 23:59 | disposition home or self-care (01) ==
LOC: LAB.DROPOF 15:42
PROVIDERS: PCP Nurse Practitioner Family; Visit Provider Nurse Practitioner Family
DX: Z00.00 Encounter for general adult medical examination without abnormal findings (principal); Z11.4 Encounter for screening for human immunodeficiency virus [HIV]; R53.83 Other fatigue; R42 Dizziness and giddiness; I25.10 Atherosclerotic heart disease of native coronary artery without angina pectoris; G47.33 Obstructive sleep apnea (adult) (pediatric); R03.0 Elevated blood-pressure reading, without diagnosis of hypertension; Z13.1 Encounter for screening for diabetes mellitus; E53.8 Deficiency of other specified B group vitamins; Z11.59 Encounter for screening for other viral diseases; E04.1 Nontoxic single thyroid nodule; E55.9 Vitamin D deficiency, unspecified; R79.9 Abnormal finding of blood chemistry, unspecified
CPT/HCPCS: 36415; 80053; 80061; 81001; 82306; 82607; 82728; 83036; 83540; 83550; 84156; 84439; 84443; 85025; 86803; 87086; 87389

== ENCOUNTER 2024-07-21 11:11 | Day surgery (SDC) | payer MEDICARE, SELFPAY ==
[2024-07-20 11:22] VITALS: BMI 41.3
[2024-07-21 11:27] VITALS: BP 164/89; PULSE 76; RESP 18; TEMP 36.8; O2SAT 97
[2024-07-21] MEDS: LACTATED RINGERS 1000ML 1,000 ML 50 ML IV (11:36)
[2024-07-21 11:49] VITALS: O2SAT 95
--- NOTE | 2024-07-21 11:53 | EXP.ANES.CKL ---
[facility] Disclaimer: The information contained in this section may have been updated after the patient was seen, as this information can be updated by other users. Medical History Bilateral otitis media URI (upper respiratory infection) Acute parotitis Left shoulder pain Fall Left upper arm pain Hemoptysis Dyspnea on exertion Dyspnea Cough Respiratory infection Respiratory illness with fever Abnormal mammogram of left breast Allergic rhinitis Abnormal x-ray of cervical spine BMI 39.0-39.9,adult History of sleep apnea Romberg's test positive Neck pain Bilateral hearing loss Ear popping Unsteady gait when walking Asthma Depression Left breast mass Surgical History History of left mastectomy History of colonoscopy H/O colonoscopy with polypectomy Deviated nasal septum History of appendectomy History of cholecystectomy H/O lumpectomy Hx of tonsillectomy H/O total hysterectomy Family History Other Heart attack Hypertension Kidney disease Social History (Updated 07/21/24 @ 11:33 by Brittany Drake RN) Smoking Status: Former smoker years smoked: 20 smoking status stop date: 1996 how long ago did patient quit smoking: >20 second hand exposure: No alcohol intake: never substance use type: denies use current occupational status: retired Travel in the last 8 weeks: None household members: spouse housing: house marital status: number of children: 2 current occupation: [employer] current occupational exposures/hazards: No caffeine: Yes Have you lived/traveled outside [place] in past 30 days?: No Contact w/someone who lives/traveled outside US past 30 days?: No Exposure to someone with infectious disease in past 14 days?: No Do you have a fever (greater than 100.4 F or 38 C)?: No Have you tested positive for COVID-19: No Exposed to someone with COVID-19 in past 14 days?: No Do you have a sore throat?: No Do you have a cough?: No Do you have any weakness?: No Are you experiencing any nausea/vomitting?: No Do you have any diarrhea?: No Are you experiencing any unusual bleeding?: No Do you have any muscle aches/pain?: No Do you have any abdominal pain?: No Are you experiencing loss of taste or smell?: No [facility] Anesthesia Checklist Patient Identification Patient Identification: Arm Band and Verbal (Name & ) Structural Data Admitted From: Home Planned Operative Procedure/s: EGD Consent for Planned Operative Procedure(s) Verified: Yes Verified Documents: Surgical Consent and History and Physical NPO Status Verified Time NPO: 23:00 Chart Verification Results Verified: CBC, BMP, ECG and Chest Xray Additional verifications Patient : No Anesthesia Reactions: No Hx Blood Transfusions: No Blood Transfusion Reaction: No Cardiovascular Assessment Heart Sounds: S1 & S2 Pulse Rhythm: Irregular Peripheral Edema: No Airway Assessment Mallampati Score:: Class II C-Spine Mobility Assessed: Yes (FROM demonstrated) TMJ Mobility Assessed: Yes Dentition: Good Dentition (Nothing loose per pt.) Neurological Assessment Level of Consciousness: Awake, Alert, Appropriate and Follows Commands Hx Seizures: No Numbness or tingling in extremities: No Anesthesia Plan Anesthesia Risk discussed: Yes Anesthesia Plan: Verified ASA Class: III Anesthesia Type: MAC
--- NOTE | 2024-07-21 12:07 | P.HP_ITS ---
History of Present Illness *Admission Date: 07/21/24 *Reason for visit:: Dyspepsia *History of present illness: Mrs. Blake is a 64-year-old female who is here for dyspepsia, bloating, belching and reflux. The examination is deemed medically necessary for diagnostic EGD. The patient has been seen, interviewed and examined prior to the procedure by both myself and the anesthesia provider. [facility] Disclaimer: The information contained in this section may have been updated after the patient was seen, as this information can be updated by other users. Medical History (Updated 07/21/24 @ 12:08 by Casey Ho II, MD) Bilateral otitis media URI (upper respiratory infection) Acute parotitis Left shoulder pain Fall Left upper arm pain Hemoptysis Dyspnea on exertion Dyspnea Cough Respiratory infection Respiratory illness with fever Abnormal mammogram of left breast Allergic rhinitis Abnormal x-ray of cervical spine BMI 39.0-39.9,adult History of sleep apnea Romberg's test positive Neck pain Bilateral hearing loss Ear popping Unsteady gait when walking Asthma Depression Left breast mass Surgical History History of left mastectomy History of colonoscopy H/O colonoscopy with polypectomy Deviated nasal septum History of appendectomy History of cholecystectomy H/O lumpectomy Hx of tonsillectomy H/O total hysterectomy Family History Other Heart attack Hypertension Kidney disease Social History (Updated 07/21/24 @ 11:33 by Brittany Drake RN) Smoking Status: Former smoker years smoked: 20 smoking status stop date: 1996 how long ago did patient quit smoking: >20 second hand exposure: No alcohol intake: never substance use type: denies use current occupational status: retired Travel in the last 8 weeks: None household members: spouse housing: house marital status: number of children: 2 current occupation: [employer] current occupational exposures/hazards: No caffeine: Yes Have you lived/traveled outside US in past 30 days?: No Contact w/someone who lives/traveled outside US past 30 days?: No Exposure to someone with infectious disease in past 14 days?: No Do you have a fever (greater than 100.4 F or 38 C)?: No Have you tested positive for COVID-19: No Exposed to someone with COVID-19 in past 14 days?: No Do you have a sore throat?: No Do you have a cough?: No Do you have any weakness?: No Are you experiencing any nausea/vomitting?: No Do you have any diarrhea?: No Are you experiencing any unusual bleeding?: No Do you have any muscle aches/pain?: No Do you have any abdominal pain?: No Are you experiencing loss of taste or smell?: No Other Medical History Have you received the Flu Vaccine for this season: No Have you received the Pneumonia Vaccine: No Review of Systems Review of Systems Review of systems (narrative): Negative *Cardiovascular Comments: Negative *Gastrointestinal Comments: Negative *Genitourinary Comments: Negative *Musculoskeletal Comments: Negative *Neurologic Comments: Negative Meds Home Medications and Allergies Home Medications ?Medication ?Instructions ?Recorded ?Confirmed ?Type famotidine 20 mg tablet 20 mg PO DAILY #30 tabs 05/24/24 07/21/24 Rx psyllium husk (with sugar) 3 1 tbsp PO DAILY 05/24/24 07/21/24 History gram/12 gram oral powder (Konsyl (sugar)) ascorbic acid (vitamin C) 1,000 mg 1 g PO DAILY 07/19/24 07/21/24 History capsule cholecalciferol (vitamin D3) 125 125 mcg PO DAILY 07/19/24 07/21/24 History mcg (5,000 unit) capsule agilbuyn-ozy-nskwx ac 400 1 tab PO DAILY 07/19/24 07/21/24 History mcg-calcium carb 500 mg-vit K1 20 mcg tablet (Women's 50 Plus Multivitamin) polyethylene glycol 3350 17 17 g PO DAILY 07/19/24 07/21/24 History gram/dose oral powder (Miralax) varicella-zoster glycoE [id number] 0.5 ml IM ONCE #1 ea 07/19/24 07/21/24 Rx adj(PF) 50 mcg/0.5 mL IM susp, kit (Shingrix (PF)) venlafaxine 75 mg capsule,extended 225 mg (3 x 75 mg) PO DAILY #270 07/19/24 07/21/24 Rx release 24 hr caps zinc acetate 50 mg (zinc) capsule 50 mg PO DAILY 07/19/24 07/21/24 History New Prescriptions to Start Prescriptions: Allergies Allergy/AdvReac Type Severity Reaction Status Date / Time No Known Allergies Allergy Verified 07/21/24 11:25 Exam Data for Last 24 hours Vital signs and Labs for Last 24 Hours: Temp Pulse Resp BP Pulse Ox O2 Del Method O2 Flow Rate 98.3 F 76 18 164/89 H 97 Nasal Cannula 5 07/21/24 11:27 07/21/24 11:27 07/21/24 11:27 07/21/24 11:27 07/21/24 11:27 07/21/24 11:49 07/21/24 11:49 I & O for Last 24 hours: Intake & Output 07/18/24 07/19/24 07/20/24 07/21/24 23:59 23:59 23:59 23:59 Weight 219 lb *Routine HEENT Exam Head: Present normocephalic Eye: Present EOMI and PERRL ENT: Present mucous membranes moist *Routine Neck Exam Neck: Present supple *Routine Respiratory Exam Respiratory: Present CTA bilaterally *Routine Cardiovascular Exam Cardiovascular: Present RRR *Routine Abdominal Exam Abdominal: Present soft and normoactive bowel sounds; Absent tenderness *Routine Rectal Exam Rectal:: deferred *Routine Genitalia Exam Genitalia:: deferred *Routine Extremities Exam Extremities: Absent cyanosis, clubbing or edema *Routine Skin Exam Skin: Present warm; Absent rash *Routine Neurological Exam Neurological: Present alert and oriented X3 Assessment and Plan *Assessment and plan (1) Dyspepsia: Status: Acute Category: Medical Code(s): R10.13 - Epigastric pain (2) Bloating: Status: Acute Category: Medical Code(s): R14.0 - Abdominal distension (gaseous) (3) Belching: Status: Acute Category: Medical Code(s): R14.2 - Eructation (4) GERD (gastroesophageal reflux disease): Status: Acute Category: Medical Code(s): K21.9 - Gastro-esophageal reflux disease without esophagitis Plan A/P: 1. Dyspepsia with bloating, belching and GERD is the preprocedural diagnosis. The patient will be anesthetized/sedated using MAC sedation. The patient has been seen and examined. Cardiac and lung assessment prior to the examination is stable. Proceed with planned diagnostic EGD
--- NOTE | 2024-07-21 12:10 | HMH.PROCNOTE ---
[facility] Procedure Note Date: 07/21/24 Time: 12:17 Procedure Note:: Upper Endoscopy Procedure Report: Esophagogastroduodenoscopy with cold biopsies Endoscopost: Casey Ho II, MD Referring Physician: NANCY Rosario Date of Procedure: July 21, 2024 Equipment: Olympus GIF 190 standard upper endoscope Sedation: MAC sedation Indications: Mrs. Blake is a 64-year-old female who is here for diagnostic upper endoscopy secondary to dyspepsia. She reports epigastric abdominal discomfort to the right side. She does get bloating and there is more bloating in the right upper abdomen. She has had moderate belching and acid reflux. She does get some intermittent heartburn. She was placed on a PPI and had improvement of her cough. She is now on famotidine. She reports no nausea, early satiety or dysphagia. This is her first EGD. The patient does have bloating and gassiness. She does have some varying bowel movements and does have some straining with her first bowel movement of the day and rarely may skip a day without a bowel movement. She did have a colonoscopy in June 2019 and had an 8 to 9 mm polyp (tubular adenoma) and pandiverticulosis. She is due for repeat surveillance colonoscopy this year. Procedure: Prior to the procedure, a history and physical exam was performed, and patient's medications and allergies were reviewed. The risks, benefits and alternatives of the sedation and procedure were discussed with the patient. All questions were answered and informed consent was obtained. The patient was brought to the procedure room. Patient identification and proposed procedure were verified by the physician and the nurse. The patient was placed in a left lateral decubitus position and the scope was passed under direct vision. Throughout the procedure, the patient's blood pressure, pulse, and oxygen saturations were monitored continuously. The upper GI endoscopy was accomplished without difficulty. The patient tolerated the procedure well. Findings: The scope was passed directly into the upper esophagus and advanced to the third portion of the duodenum. The post bulbar duodenum, ampulla and duodenal bulb were normal with normal mucosa and conniventes. The scope was withdrawn through a normal duodenal bulb and pylorus into the stomach. There was moderate linear reactive gastropathy of the antrum and body of the stomach. Biopsies were taken from the antrum. The fundus of the stomach was normal. Upon retroflexion there was no hiatal hernia and the fundus of the stomach was normal. The scope was then withdrawn into the esophagus. There was no evidence of reflux esophagitis or Hernandes's. Biopsies were taken at the GE junction. The remainder of the esophageal mucosa was normal. Impression: 1. Nonerosive GERD with mild esophageal dysmotility 2. Moderate linear reactive gastropathy of antrum and body Plan: I will follow-up the biopsies. The patient does have functional dyspepsia. I do feel that most of her symptoms of dyspepsia are related to and driven by lower intestinal gas pressure gradients/high gas pressure buildup resulting in backflow of bile and peptic fluid from the duodenum into the stomach (duodenal reflux). This gas production (carbon dioxide, hydrogen, methane, etc.) from the lower intestinal tract is the byproduct of colonic bacterial fermentation. This colonic fermentation occurs when there is more carbohydrate (dietary starches, sugars and high residue plant fiber) substrate that does not get digested (in the middle or small intestine) or occurs when there is colonic fecal buildup and colonic bacterial overgrowth. This indeed leads to bloating and the gas pressure buildup with gas pressure gradients that do drive backflow and dyspepsia.
[2024-07-21 12:25] VITALS: BP 138/84; PULSE 99; RESP 20; TEMP 36.9; O2SAT 97
[2024-07-21 12:35] VITALS: BP 116/68; PULSE 70; RESP 20; O2SAT 94
[2024-07-21 12:45] VITALS: BP 144/80; PULSE 74; RESP 18; O2SAT 96
[2024-07-21 12:55] VITALS: BP 137/84; PULSE 88; RESP 18; TEMP 36.9; O2SAT 97
== END 2024-07-21 13:10 | disposition home or self-care (01) ==
PROVIDERS: PCP Nurse Practitioner Family; Visit Provider Internal Medicine Gastroenterology
PROC: 0DJ08ZZ Inspection of Upper Intestinal Tract, Via Natural or Artificial Opening Endoscopic (ICD-10-PCS; CPT 43239; principal; 2024-07-21 13:00)
DX: R10.13 Epigastric pain (principal); R14.0 Abdominal distension (gaseous); R14.2 Eructation; K21.9 Gastro-esophageal reflux disease without esophagitis; K22.4 Dyskinesia of esophagus; K31.9 Disease of stomach and duodenum, unspecified
CPT/HCPCS: 43239; J7120

== ENCOUNTER 2024-08-03 07:14 | Outpatient (CLI) | payer SELFPAY ==
--- NOTE | 2024-08-03 07:15 | CT_ITS ---
APPROVED REPORT Supervisor Plasma: CLINICAL INDICATION Coronary risk evaluation and stratification TECHNIQUE Image Acquisition: A 128 slice MDCT scanner ([employer] View) was used for data acquisition. A noncontrast coronary calcium scan was performed. A CT attenuation threshold of 130 Hounsfield units (HU) was used for the detection of calcium in contiguous voxels of 1 sq mm in area to be counted as individual lesions. A tube voltage of 120 KVp was used. The patient received no medications prior to the coronary calcium CT. Image Reconstruction Transaxial images were reconstructed at 0.67 mm slide thickness. Data was reviewed interactively on an advanced workstation capable of 2 and 3-dimensional displays in all conventional reconstruction formats, including multiplanar reformations, maximum intensity projections, curved multiplanar reformations, and volume rendered reconstructions. When applicable, selected routine images describing the relevant coronary anatomy and pathology were saved and sent to PACS. Complications None Technical Quality Overall image quality was good. Total DLP (Dose-Length Product) is 143.91 mGy-cm. The reported value represents the total of one or more individual components during the CT acquisition of this date and at this time, and as such, the same value may appear in more than one CT report depending on the interpreting/reporting physicians. COMPARISON None FINDINGS CT Coronary Calcium Scoring LMA (Left Main Artery) = 0 LAD (Left Anterior Descending) = 0 LCX (Left Coronary Circumflex) = 0 RCA (Right Coronary Artery) = 0 Total Calcium Score = 0 using the AJ-130 method. There is no identifiable calcification in the aortic valve, mitral annulus or mitral valve, pericardium, or myocardium. IMPRESSION -Coronary artery calcification is absent. -Total Calcium Score (Agatston Score) = 0 using the AJ-130 method. The interpretation of the calcium heart score is based on the following continuum*: 0 = no calcified plaque detected (risk of coronary artery disease is very low ??? less than 5%) 1-10 = calcium detected in extremely minimal levels (risk of coronary diseases is still low ??? less than 10%) 11-100 = mild levels of plaque detected with certainty (mild or minimal narrowing of heart arteries is likely) 101-400 = definite,at least moderate levels of plaque detected (relatively high risk of a heart attack within 3-5 years) >401-999 = extensive levels of plaque detected (high risk of heart attack, high levels of vascular disease are present, high likelihood of at least one significant coronary narrowing) *The calcium heart score quantifies the burden of coronary calcification/plaque in the coronary arteries. The calcium heart score does not evaluate the presence or the burden of non-calcified (i.e. soft) plaque. The coronary and cardiac findings of this Coronary Calcium CT were reviewed, reported, and signed by Gerson Carmona MD (Layout Operator). Conclusion Electronically signed by : Emily Carmona MD 08/03/2024 13:06:02
== END 2024-08-03 23:59 | disposition home or self-care (01) ==
LOC: RAD 07:15
PROVIDERS: PCP Nurse Practitioner Family; Visit Provider Nurse Practitioner Family
DX: I25.10 Atherosclerotic heart disease of native coronary artery without angina pectoris (principal)
CPT/HCPCS: 75571; 93880

== ENCOUNTER 2024-08-03 07:45 | Outpatient (CLI) | payer SELFPAY ==
--- NOTE | 2024-08-03 08:09 | CA_ITS ---
FINAL REPORT CLINICAL HISTORY: Exsmoker, dizziness COMPARISON: None FINDINGS: RIGHT CAROTID: CCA PSV -143 cm/sec ICA PSV -67 cm/sec ICA/CCA PSV ratio -1.1. Comments: No significant plaque disease is noted. LEFTCAROTID: CCA PSV -125. cm/sec ICA PSV -101. cm/sec ICA/CCA PSV ratio -1.2. Comments: No significant plaque disease is noted. Antegrade flow is seen within the vertebral arteries. IMPRESSION: Carotid stenosis classified less than 50% Reviewed, Interpreted and Dictated by Merlin Purvis MD Transcribed by Sharonda Kimball Authenticated and [facility]
== END 2024-08-03 23:59 | disposition home or self-care (01) ==
LOC: RT 07:45
PROVIDERS: PCP Nurse Practitioner Family; Visit Provider Nurse Practitioner Family
DX: R42 Dizziness and giddiness (principal)
CPT/HCPCS: 93880

== ENCOUNTER 2024-08-16 10:15 | Outpatient (CLI) | payer MEDICARE, SELFPAY ==
--- NOTE | 2024-08-16 10:16 | MM_ITS ---
PROCEDURE INFORMATION: Exam: MG Right Screening 3D Mammography Exam date and time: 08/16/2024 10:28 AM Age: 64 years old Clinical indication: Screening. Personal history of left breast cancer, status post mastectomy in 2022. TECHNIQUE: Imaging protocol: Right Screening tomosynthesis and 2D mammography including computer-aided detection (CAD) when performed. COMPARISON: 1. MG MM DIG SC MAMM UNILAT RT CAD 08/15/2023 8:31 AM 2. MG MM CLIP PLACEMENT LT 09/23/2022 11:28 AM 3. MG MM SURGICAL SPECIMEN LT 09/23/2022 11:19 AM 4. MG MM SURGICAL SPECIMEN LT 09/23/2022 10:38 AM FINDINGS: MAMMOGRAPHY: Breast composition: There are scattered areas of fibroglandular density. Mass: No suspicious mass. Architectural distortion: None. Calcifications: No suspicious calcifications. Asymmetric density: None. Skin thickening: None. Axillary adenopathy: None. IMPRESSION: No mammographic evidence of malignancy. Annual screening is recommended unless otherwise clinically indicated. ASSESSMENT: BI-RADS Category 1: Negative.
== END 2024-08-16 23:59 | disposition home or self-care (01) ==
LOC: RAD 10:16
PROVIDERS: PCP Nurse Practitioner Family; Visit Provider Nurse Practitioner Family
DX: Z12.31 Encounter for screening mammogram for malignant neoplasm of breast (principal)
CPT/HCPCS: 77063; 77067

== ENCOUNTER 2024-09-30 09:58 | Day surgery (SDC) | payer MEDICARE, SELFPAY ==
[2024-09-29 10:22] VITALS: BMI 41.9
[2024-09-30] MEDS: LACTATED RINGERS 1000ML 1,000 ML 50 ML IV (10:41)
[2024-09-30 10:43] VITALS: BP 155/84; PULSE 69; RESP 18; TEMP 36.2; O2SAT 98
--- NOTE | 2024-09-30 11:43 | EXP.HP ---
History of Present Illness *Admission Date: 09/30/24 *Reason for visit:: Personal history of adenomatous colon polyp *History of present illness: Mrs. Blake is a 64-year-old female who is here for surveillance colonoscopy secondary to a personal history of an adenomatous polyp. The examination is deemed medically necessary for surveillance colonoscopy. The patient has been seen, interviewed and examined prior to the procedure by both myself and the anesthesia provider. [facility] Disclaimer: The information contained in this section may have been updated after the patient was seen, as this information can be updated by other users. Medical History (Updated 09/30/24 @ 11:44 by Casey Ho II, MD) Bilateral otitis media URI (upper respiratory infection) Acute parotitis Left shoulder pain Fall Left upper arm pain Hemoptysis Dyspnea on exertion Dyspnea Cough Respiratory infection Respiratory illness with fever Abnormal mammogram of left breast Allergic rhinitis Abnormal x-ray of cervical spine BMI 39.0-39.9,adult History of sleep apnea Romberg's test positive Neck pain Bilateral hearing loss Ear popping Unsteady gait when walking Asthma Depression Left breast mass Surgical History History of left mastectomy History of colonoscopy H/O colonoscopy with polypectomy Deviated nasal septum History of appendectomy History of cholecystectomy H/O lumpectomy Hx of tonsillectomy H/O total hysterectomy Family History Other Heart attack Hypertension Kidney disease Social History Smoking Status: Former smoker years smoked: 20 smoking status stop date: 1996 how long ago did patient quit smoking: >20 second hand exposure: No alcohol intake: never substance use type: denies use current occupational status: retired Travel in the last 8 weeks: None household members: spouse housing: house marital status: number of children: 2 current occupation: [employer] current occupational exposures/hazards: No caffeine: Yes Have you lived/traveled outside [place] in past 30 days?: No Contact w/someone who lives/traveled outside US past 30 days?: No Exposure to someone with infectious disease in past 14 days?: No Do you have a fever (greater than 100.4 F or 38 C)?: No Have you tested positive for COVID-19: No Exposed to someone with COVID-19 in past 14 days?: No Do you have a sore throat?: No Do you have a cough?: No Do you have any weakness?: No Do you have any diarrhea?: No Are you experiencing any unusual bleeding?: No Do you have any muscle aches/pain?: No Do you have any abdominal pain?: No Are you experiencing loss of taste or smell?: No Other Medical History Have you received the Flu Vaccine for this season: No Have you received the Pneumonia Vaccine: No Review of Systems Review of Systems Review of systems (narrative): Negative *Cardiovascular Comments: Negative *Gastrointestinal Comments: Negative *Genitourinary Comments: Negative *Musculoskeletal Comments: Negative *Neurologic Comments: Negative Meds Home Medications and Allergies Home Medications ?Medication ?Instructions ?Recorded ?Confirmed ?Type psyllium husk (with sugar) 3 1 tbsp PO DAILY 05/24/24 09/30/24 History gram/12 gram oral powder (Konsyl (sugar)) ascorbic acid (vitamin C) 1,000 mg 1 g PO DAILY 07/19/24 09/30/24 History capsule cholecalciferol (vitamin D3) 125 125 mcg PO DAILY 07/19/24 09/30/24 History mcg (5,000 unit) capsule [id number]-bwr-nmvwc ac 400 1 tab PO DAILY 07/19/24 09/30/24 History mcg-calcium carb 500 mg-vit K1 20 mcg tablet (Women's 50 Plus Multivitamin) polyethylene glycol 3350 17 17 g PO DIRECTED 07/19/24 09/30/24 History gram/dose oral powder (Miralax) venlafaxine 75 mg capsule,extended 225 mg (3 x 75 mg) PO DAILY #270 07/19/24 09/30/24 Rx release 24 hr caps cetirizine 10 mg capsule (Zyrtec) 10 mg PO DAILY PRN allergies 09/29/24 09/30/24 History New Prescriptions to Start Prescriptions: Allergies Allergy/AdvReac Type Severity Reaction Status Date / Time No Known Allergies Allergy Verified 09/30/24 10:42 Exam Data for Last 24 hours Vital signs and Labs for Last 24 Hours: Temp Pulse Resp BP Pulse Ox O2 Del Method 97.1 F L 69 18 155/84 H 98 Room Air 09/30/24 10:43 09/30/24 10:43 09/30/24 10:43 09/30/24 10:43 09/30/24 10:43 09/30/24 10:43 I & O for Last 24 hours: Intake & Output 09/27/24 09/28/24 09/29/24 09/30/24 23:59 23:59 23:59 23:59 Weight 222 lb *Routine HEENT Exam Head: Present normocephalic Eye: Present EOMI and PERRL ENT: Present mucous membranes moist *Routine Neck Exam Neck: Present supple *Routine Respiratory Exam Respiratory: Present CTA bilaterally *Routine Cardiovascular Exam Cardiovascular: Present RRR *Routine Abdominal Exam Abdominal: Present soft and normoactive bowel sounds; Absent tenderness *Routine Rectal Exam Rectal:: deferred *Routine Genitalia Exam Genitalia:: deferred *Routine Extremities Exam Extremities: Absent cyanosis, clubbing or edema *Routine Skin Exam Skin: Present warm; Absent rash *Routine Neurological Exam Neurological: Present alert and oriented X3 Assessment and Plan *Assessment and plan (1) Personal history of adenomatous and serrated colon polyps: Status: Acute Category: Medical Code(s): Z86.0101 - Personal history of adenomatous and serrated colon polyps Plan A/P: 1. Personal history of adenomatous colon polyp is the preprocedural diagnosis. The patient did have a colonoscopy in June 2019 and had an 8 to 9 mm tubular adenoma removed. The patient will be anesthetized/sedated using MAC sedation. The patient has been seen and examined. Cardiac and lung assessment prior to the examination is stable. Proceed with planned surveillance colonoscopy.
--- NOTE | 2024-09-30 11:44 | P.PCN_ITS ---
[facility] Procedure Note Date: 09/30/24 Time: 12:11 Procedure Note:: Colonoscopy Procedure Report: Colonoscopy with cold snare polypectomy Endoscopist: Casey Ho II, MD Referring physician: NANCY Rosario Date of Procedure: September 30, 2024 Equipment: Olympus 190 variable stiffness pediatric colonoscope Sedation: MAC sedation Indication: Mrs. Blake is a 64-year-old female who is here for follow-up surveillance colonoscopy. She had a colonoscopy in June 2019 and had an 8 to 9 mm polyp (tubular adenoma) removed. The patient reports no abdominal pain, weight loss, change in her bowel habits or rectal bleeding. She reports no family history of colon cancer. The patient was having dyspepsia and is improved with dietary measures, fiber bowel regimen (Konsyl and MiraLAX) and an ucsw-mkp-xadvadg digestive enzymes. Procedure: Prior to the procedure, a history and physical exam was performed, and patient's medications and allergies were reviewed. The risks, benefits and alternatives of the sedation and procedure were discussed with the patient. All questions were answered and informed consent was obtained. The patient was brought to the procedure room. Patient identification and proposed procedure were verified by the physician and the nurse. The patient was placed in a left lateral decubitus position and the scope was passed under direct vision. Throughout the procedure, the patient's blood pressure, pulse, and oxygen saturations were monitored continuously. The colonoscopy was accomplished without difficulty. The patient tolerated the procedure well. Findings: On digital rectal examination there was normal rectal tone. There were no external hemorrhoids. The colonoscope was introduced through the anal canal to the rectum and advanced to the cecum. The ileocecal valve and appendiceal orifice were identified. The scope was advanced a short distance into the ileum which appeared grossly normal. The scope was then withdrawn into the colon. There was a single diminutive 3 to 4 mm polyp in the ascending colon removed via cold snare polypectomy. There were scattered diverticuli throughout the colon but more predominantly in the descending and sigmoid colon (LEFT colon). The rectum itself was normal. Upon retroflexion within the rectum there were grade 1-2 internal hemorrhoids. The preparation was excellent throughout with Parker Preparation Score of 9. The cecal time was 10 minutes. Impression: 1. Diminutive 3 to 4 mm ascending colon polyp 2. Pandiverticulosis 3. Grade 1-2 internal hemorrhoids Plan: I will follow-up the polyp histology and recommend repeat surveillance colonoscopy again in 7 to 10 years.
[2024-09-30 11:56] VITALS: O2SAT 100
[2024-09-30 12:14] VITALS: BP 107/47; PULSE 64; RESP 16; TEMP 36.7; O2SAT 100
[2024-09-30 12:24] VITALS: BP 122/76; PULSE 61; RESP 16; O2SAT 100
[2024-09-30 12:34] VITALS: BP 139/86; PULSE 61; RESP 16; O2SAT 100
[2024-09-30 12:44] VITALS: BP 129/84; PULSE 68; RESP 16; O2SAT 100
== END 2024-09-30 12:54 | disposition home or self-care (01) ==
PROVIDERS: PCP Nurse Practitioner Family; Visit Provider Internal Medicine Gastroenterology
PROC: 0DJD8ZZ Inspection of Lower Intestinal Tract, Via Natural or Artificial Opening Endoscopic (ICD-10-PCS; CPT 45378; principal; 2024-09-30 11:30)
DX: D12.2 Benign neoplasm of ascending colon (principal); K57.30 Diverticulosis of large intestine without perforation or abscess without bleeding; K64.8 Other hemorrhoids; Z86.0101 Personal history of adenomatous and serrated colon polyps
CPT/HCPCS: 45385; J7120

== ENCOUNTER 2025-01-18 16:00 | Emergency (ER) | payer MEDICARE, SELFPAY ==
--- NOTE | 2025-01-18 16:10 | CT_ITS ---
PROCEDURE INFORMATION: Exam: CT Cervical Spine Without Contrast Exam date and time: 01/18/2025 4:33 PM Age: 64 years old Clinical indication: Injury or trauma; Fall; Blunt trauma; Additional info: Fall hit head TECHNIQUE: Imaging protocol: Computed tomography of the cervical spine without contrast. Radiation optimization: All CT scans at this facility use at least one of these dose optimization techniques: automated exposure control; mA and/or kV adjustment per patient size (includes targeted exams where dose is matched to clinical indication); or iterative reconstruction. COMPARISON: MR CERVICAL SPINE WO CON 06/20/2022 8:49 AM FINDINGS: Bones: No evident fracture. Advanced degenerative changes of the C-spine most pronounced at C3-C4 through C6-C7. Otherwise unremarkable CT of the C-spine. Alignment and vertebral body heights are intact. Lungs: Lung apices are normal. Soft tissues: Unremarkable. IMPRESSION: Degenerative changes. No acute abnormality.
--- NOTE | 2025-01-18 16:10 | CT_ITS ---
PROCEDURE INFORMATION: Exam: CT Head Without Contrast Exam date and time: 01/18/2025 4:31 PM Age: 64 years old Clinical indication: Injury or trauma; Fall; Laceration; Without residual foreign body; Eye; Left TECHNIQUE: Imaging protocol: Computed tomography of the head without contrast. Radiation optimization: All CT scans at this facility use at least one of these dose optimization techniques: automated exposure control; mA and/or kV adjustment per patient size (includes targeted exams where dose is matched to clinical indication); or iterative reconstruction. COMPARISON: CT HEAD/BRAIN WO/W CON 08/15/2023 10:10 AM FINDINGS: Brain: No intracranial hemorrhage. Mild atrophic changes of the ventricles and subarachnoid spaces. Mild chronic small-vessel ischemic changes noted. No mass, mass effect or midline shift. Intracranial atherosclerotic changes are noted. Cerebral ventricles: See Brain finding. Paranasal sinuses: Visualized sinuses are unremarkable. No fluid levels. Mastoid air cells: Visualized mastoid air cells are well aerated. Bones: Unremarkable. No acute fracture. Soft tissues: Unremarkable. IMPRESSION: Stable noncontrast CT brain with chronic changes. No acute intracranial abnormality.
--- NOTE | 2025-01-18 16:10 | XR_ITS ---
PROCEDURE INFORMATION: Exam: XR Left Hand Exam date and time: 01/18/2025 4:21 PM Age: 64 years old Clinical indication: Pain; Hand; Left; Additional info: Foosh TECHNIQUE: Imaging protocol: Radiologic exam of the left hand. Views: 1 or 2 views. COMPARISON: No relevant prior studies available. FINDINGS: Bones/joints: No acute fracture identified. Degenerative changes of the hand most pronounced involving the DIP joints and 1st carpometacarpal joint. Soft tissues: Normal. IMPRESSION: No acute abnormality.
--- NOTE | 2025-01-18 16:10 | XR_ITS ---
PROCEDURE INFORMATION: Exam: XR Right Hand Exam date and time: 01/18/2025 4:21 PM Age: 64 years old Clinical indication: Pain; Hand; Right; Additional info: Foosh TECHNIQUE: Imaging protocol: Radiologic exam of the right hand. Views: 1 or 2 views. COMPARISON: No relevant prior studies available. FINDINGS: Bones/joints: No acute fracture identified. Degenerative changes most pronounced involving the DIP joints and thumb IP joint and 1st carpometacarpal joint. Soft tissues: Normal. IMPRESSION: No acute abnormality.
--- NOTE | 2025-01-18 16:12 | ED_ITS ---
<Statement entered by Sammy Mesa MD - 01/19/25 02:18> I was consulted by the KARL, and we discussed the complexity of the problems being addressed. I approve the treatment and management plan for this patient's care in the emergency department, thus performing a substantive portion of the medical decision making. Sammy Mesa MD Discharge Plan Disposition Patient Disposition: Home, Self-Care Prescriptions Prescriptions: No Action Konsyl (sugar) 3 gram/12 gram powder 1 tbsp PO DAILY Rx Instructions: 1 tablespoon by mouth once a day polyethylene glycol 3350 [Miralax] 17 gram/dose powder 17 g PO DIRECTED Rx Instructions: 3 times a week cholecalciferol (vitamin D3) 125 mcg (5,000 unit) capsule 125 mcg PO DAILY Women's 50 Plus Multivitamin 400 mcg-500 mg calcium-20 mcg tablet 1 tab PO DAILY ascorbic acid (vitamin C) 1,000 mg capsule 1 g PO DAILY venlafaxine 75 mg capsule,extended release 24hr 225 mg PO DAILY Qty: 270 3RF triamcinolone acetonide 0.1 % ointment 1 applic topical BID Qty: 15 0RF methylprednisolone 4 mg tablets,dose pack See Rx Instructions PO PER PKG DIR Qty: 21 0RF Rx Instructions: PO PER PKG DIR Zyrtec 10 mg Capsule 10 mg PO DAILY PRN (Reason: allergies) Referrals Follow up/Referrals: Keeley Rose APRN [Primary Care Provider, Family Practice] - See instructions Activity Restrictions/Add. Instructions Additional Instructions/Restrictions: Today you were evaluated in the emergency department after a fall. All of your CT scans and x-ray imaging are negative for any acute bony abnormalities. P lease follow-up with your PCP within 48 hours. Return to the ED for any worsening of your condition. You may take acetaminophen and ibuprofen [id number] for symptomatic relief. Please do not submerge your laceration of your left eyebrow for 7 days. Clinical Impressions Clinical Impression: Fall, Laceration Instructions Patient Instructions: How to Prevent Falls Print Language Print Language: Kyrgyz Discharge ED Provider: Sammy Mesa General Adult HPI General Chief complaint: Fall Stated complaint: AO 8-12 @1530 fell and hurt both hands Time Seen by Provider: 01/18/25 16:07 History of Present Illness HPI narrative: patient is a 64-year-old female PMHx GERD, obesity who presents to the ED after tripping and falling into a car bumper. Patient states she had the car bumper with her left eyebrow, also attempted to catch herself with her bilateral hands, causing pain in her hands. Related Data Home Medications ?Medication ?Instructions ?Recorded ?Confirmed psyllium husk (with sugar) 3 1 tbsp PO DAILY 05/24/24 01/06/25 gram/12 gram oral powder (Konsyl (sugar)) ascorbic acid (vitamin C) 1,000 mg 1 g PO DAILY 01/06/25 capsule cholecalciferol (vitamin D3) 125 125 mcg PO DAILY 07/1001/06/25 mcg (5,000 unit) capsule zrfccayf-dgc-cffnu ac 400 1 tab PO DAILY 07/19/2412/09 mcg-calcium carb 500 mg-vit K1 20 mcg tablet (Women's 50 Plus Multivitamin) polyethylene glycol 3350 17 17 g PO DIRECTED 01/06/25 gram/dose oral powder (Miralax) cetirizine 10 mg capsule (Zyrtec) 10 mg PO DAILY PRN a llergies 09/29/24 01/06/25 Previous Rx's ?Medication ?Instructions ?Recorded venlafaxine 75 mg capsule,extended 225 mg (3 x 75 mg) PO DAILY #270 07/19/24 release 24 hr caps methylprednisolone 4 mg tablets in See Rx Instructions PO PER PKG DIR 01/06/25 a dose pack #21 tabs triamcinolone acetonide 0.1 % 1 applic topical BID #15 grams 01/06/25 topical ointment Allergies Allergy/AdvReac Type Severity Reaction Status Date / Time No Known Allergies Allergy Verified 01/06/25 09:53 [facility] Disclaimer: The information contained in this section may have been updated after the patient was seen, as this information can be updated by other users. Medical History Bilateral otitis media URI (upper respiratory infection) Acute parotitis right Left shoulder pain Fall Left upper arm pain Hemoptysis Dyspnea on exertion Dyspnea Cough Respiratory infection Respiratory illness with fever Abnormal mammogram of left breast Allergic rhinitis Abnormal x-ray of cervical spine BMI 39.0-39.9,adult Additional 2 pound weight loss since last visit for a total of 7 pounds loss since last visit with lifestyle modifications including decrease portion sizes, intermittent fasting, exercises. History of sleep apnea Unknown severity, diagnosed greater than 15 years ago, intolerant to CPAP, untreated since, patient believes she has gained unknown amount of weight since initial diagnosis. Romberg's test positive Resolved. Negative Romberg again today. Neck pain Bilateral hearing loss Ear popping Unsteady gait when walking Asthma Depression Left breast mass s/p excision in 05/2019 (benign) Surgical History History of left mastectomy 10/24/22, Dr. Jordan History of colonoscopy H/O colonoscopy with polypectomy 2019, repeat due 2024 Deviated nasal septum History of appendectomy History of cholecystectomy H/O lumpectomy Hx of tonsillectomy H/O total hysterectomy Due to Fibroids Family History Other Heart attack Hypertension Kidney disease Social History Smoking Status: Never smoker years smoked: 20 smoking status stop date: 1996 how long ago did patient quit smoking: >20 second hand exposure: No alcohol intake: never substance use type: denies use current occupational status: retired Travel in the last 8 weeks?: None household members: spouse housing: house marital status: number of children: 2 current occupation: [employer] current occupational exposures/hazards: No caffeine: Yes Have you lived/traveled outside [place] in past 30 days?: No Contact w/someone who lives/traveled outside US past 30 days?: No Exposure to someone with infectious disease in past 14 days?: No Do you have a fever (greater than 100.4 F or 38 C)?: No Have you tested positive for COVID-19?: No Exposed to someone with COVID-19 in past 14 days?: No Do you have a sore throat?: No Do you have a cough?: No Do you have any weakness?: No Do you have any diarrhea?: No Are you experiencing any unusual bleeding?: No Do you have any muscle aches/pain?: No Do you have any abdominal pain?: No Are you experiencing loss of taste or smell?: No Other Medical History Have you received the Flu Vaccine for this season: No Have you received the Pneumonia Vaccine: No ROS Obtained: Yes Systems reviewed as appropriate & no additional complaints except as documented Physical Exam General General appearance: alert and in no apparent distress Head Head exam: other (3 cm linear left eyebrow lac ) Eye Eye exam: Present PERRL and EOMI Neck Neck exam: Present full ROM and other (minimal posterior c spine tenderness ) Respiratory Respiratory exam: Present normal lung sounds bilaterally and respiratory distress Cardiovascular Cardiovascular exam: Present regular rate Abdominal Exam Abdominal exam: Present soft Extremities Exam Extremities exam: Present other (Bilateral left pinky tenderness, no wrist tenderness, full ROM of all digits. Abrasion on the left knee, patella intact and midline, no tenderness.) Neurological Exam Neurological exam: Present alert and oriented X3 Skin Skin exam: Present warm Medical Decision Making Medical Records Screening: Per USPSTF and CDC recommendations, given the prevalence of disease in our region, it is our hospital?s policy to screen for HIV and viral Hepatitis for all patients aged 18 and over and those with ongoing risk factors. [place]aro Inquiry Pt receiving controlled substance: No Vital Signs: 01/18/25 16:15 01/18/25 16:36 01/18/25 16:46 Temperature 98.7 F Temperature Source Oral Pulse Rate Pulse Rate [Right] 66 Respiratory Rate 14 Blood Pressure 123/75 Blood Pressure [Right Arm] 148/77 H Blood Pressure Mean [Right Arm] 100 Blood Pressure Source [Right Arm] Automatic Cuff Blood Pressure Position [Right Arm] Supine 02 Sat by Pulse Oximetry 98 91 L 97 Oxygen Delivery Method Room Air Room Air 01/18/25 17:00 Temperature Temperature Source Pulse Rate 58 L Pulse Rate [Right] Respiratory Rate Blood Pressure 139/77 Blood Pressure [Right Arm] Blood Pressure Mean [Right Arm] Blood Pressure Source [Right Arm] Blood Pressure Position [Right Arm] 02 Sat by Pulse Oximetry 95 Oxygen Delivery Method Orders (Tests/Meds): ED MEDICATIONS Discontinued Medications Generic Name Dose Route Start Last Admin Trade Name Freq PRN Reason Stop Dose Admin Acetaminophen 1,000 mg 01/18/25 16:10 01/18/25 16:17 Acetaminophen 500mg Tab PO 01/18/25 16:11 1,000 mg ONCE ONE Administration ORDERS Category Date Time Status CT cervical spine wo con Stat Cat Scan 01/18/25 16:[address] head/brain wo con Stat Cat Scan 01/18/25 16:10 Completed Hand XR left 2 views [XR hand LT 2V] Stat Exams 01/18/25 16:10 Completed Hand XR right 2 views [XR hand RT 2V] Stat Exams 01/18/25 16:10 Completed Medical Decision Narrative: In summary, patient is a 64-year-old female PMHx GERD, obesity who presents to the ED after tripping and falling into a car bumper. Patient states she had the car bumper with her left eyebrow, also attempted to catch herself with her bilateral hands, causing pain in her hands. She did not lose consciousness, states she is not on blood thinners. She states she is starting to develop a mild headache. Patient was wearing glasses when she fell which we suspect may have caused her laceration. Patient has full ROM of all extremities and fingers. No pain in wrist with ROM. Discussed with patient we will proceed with CT scans and x-ray imaging. She was administered acetaminophen for pain. Final read of the hand x-ray is no acute abnormality of the right hand. Final read of the left hand x-ray is no acute abnormality. Final read of the head CT shows a stable brain with no chronic changes. No acute intracranial abnormality. Procedure performed, patient's left eyebrow laceration cleaned with Hibiclens, cleaned with iodine, closed with Dermabond. Laceration is very superficial, approximately 3 cm in length. Upon reassessment, patient states that her condition has improved. Discussed that she will need to follow-up with her PCP within 24 to 48 hours. We discussed to not submerge the glue in water over the next 7 days. Discussed that she will need to return to the ED for any worsening of her condition including but not limited to confusion, lethargic, seizures, among others. Critical Care Critical Care Time Critical Care Time: No
[2025-01-18 16:15] VITALS: BP 148/77; PULSE 66; RESP 14; TEMP 37.1; O2SAT 98; BMI 39.6
[2025-01-18] MEDS: ACETAMINOPHEN 500MG TAB 1000 MG PO (16:17)
--- OUTSIDE RECORDS SUMMARY | 2025-01-18 16:19 | XMS_ITS | Clinical Summary ---
[facility] Address [address] [place] [address] Care Team Providers Care Technical Sourcing Recruiter Name Role Phone Unavailable Primary Care Provider Unavailabl e Social History Tobacco Use Types Packs/Day Years Used Date Smoking Tobacco: Never Assessed Abuse Screen Answer Date Recorded Unsafe at Home or Work/School Not on file Feels Threatened by Someone? Not on file 04/2023 Does Anyone Keep You from Co ntacting Others or Doint Things Outside the Home? Not on file 03/19/2023 Physical Sign of Abuse Present Not on file 1 Housing Stability Answer Date Recorded Current Living Arrangements Not on file 03/09 Potentially Unsafe Housing Conditions Not on jose a e 03/19/2023 Family and Community Support Answer Sea e Recorded Help with Day-to-Day Activities Not on file 03/19/2023 Lonely or Isolated Not on file 03/19/2023 Employment Answer Date Recorded Do you want help finding or keeping work or a natan b? Not on file 03/19/2023 Disabilities Answer Date Recorded Concentrating, Remembering, or Making Decisions Difficulty Not on file 03/19/2023 Doing Errands Independently Difficulty Not on fi le 03/19/2023 Education Answer Date Recorded Help with school or training? Not on file Preferred Language Not on file 03/19/2023 Comments Unknown Sex and Gender Information Value Date Recorded Sex Assigned at Not on file Legal Sex Female 11:17 AM EDT Gender Identity Not on file Sexual Orientation Not on file Plan of Treatment Health Maintenance Due Date Last Done Comments ANNUAL PHYSICAL 1959 DXA SCAN 1959 HEPATITIS C SCREENING 1959 TDAP/TD VACCINES (1 - Tdap) 1978 MAMMOGRAM 1999 COLOGUARD 2004 COLON CANCER SCREENING 5 YEAR SIGMOIDOSCOPY 2004 COLONOSCOPY 2004 [address] CANCER SCREENING 2004 CT COLONOGRAPHY 2004 FECAL OCCULT BLOOD TEST 2004 FIT Testing (1 year) 2004 Pneumococcal Vaccine 50+ (1 of 1 - PCV) 2009 ZOSTER VACCINE (1 of 2) 2009 COVID-19 Vaccine (1 - 2023- season) 2024 INFLUENZA VACCINE 03/09/2025
--- NOTE | 2025-01-18 16:30 | PC.NURSE ---
pt to ct
[2025-01-18 16:36] VITALS: BP 123/75; O2SAT 91
[2025-01-18 16:46] VITALS: O2SAT 97
[2025-01-18 17:00] VITALS: BP 139/77; PULSE 58; O2SAT 95
[2025-01-18 17:38] VITALS: BP 137/76; PULSE 57; RESP 18; TEMP 36.6; O2SAT 98
== END 2025-01-18 17:39 | disposition home or self-care (01) ==
PROVIDERS: Emergency Provider Student in an Organized Health Care Education/Training Program; PCP Nurse Practitioner Family
DX: S01.81XA Laceration without foreign body of other part of head, initial encounter (principal); M79.641 Pain in right hand; M79.642 Pain in left hand; W01.198A Fall on same level from slipping, tripping and stumbling with subsequent striking against other object, initial encounter
CPT/HCPCS: 12013; 70450; 72125; 73120; 99285